=== PATIENT | female | born 1960 | race Caucasian/White ===

== ENCOUNTER → 2020-02-28 09:08 | Outpatient (BNVA) | payer OTHER, SELFPAY | PROVIDERS: Visit Provider Dietitian, Registered | DX: Z76.89 Persons encountering health services in other specified circumstances (principal) ==

== ENCOUNTER → 2020-03-27 08:06 | Outpatient (BNVA) | payer OTHER, SELFPAY | PROVIDERS: PCP Internal Medicine; Visit Provider Physician Assistant | DX: Z76.89 Persons encountering health services in other specified circumstances (principal) ==

== ENCOUNTER 2021-03-23 07:06 | Outpatient (REF) | payer OTHER, SELFPAY | END 2021-03-23 07:07 | disposition home or self-care (01) | LOC: HO.HOSX 07:06 | PROVIDERS: Visit Provider Physician Assistant | DX: Z13.89 Encounter for screening for other disorder (principal) ==

== ENCOUNTER 2021-06-09 09:08 | Outpatient (REF) | payer OTHER, SELFPAY ==
[2021-06-09 11:34] LABS: Appearance Urine CLEAR; Color Urine YELLOW; Glucose Urine UA NEG (NEG); Leukocyte Esterase Urine 1+ (NEG); Nitrite Urine NEG (NEG); PH 7.5 (5.0-8.0); Specific Gravity - Urine 1.015 (1.005-1.025); UACC Culture Trigger YES; Urine Blood NEG (NEG); Urine Ketones NEG (NEG); Urine Protein NEG (NEG-TRACE)
[2021-06-09 11:35] LABS: MANUAL DIFF FLAG NO
[2021-06-09 11:47] LABS: Basophils Percent Auto 0.4 % (0-2); Eosinophils Absolute Auto 0.3 X10*3/uL (0.0-0.4); Eosinophils Percent Auto 5.2 % (0-4); Hematocrit 41.9 % (37.0-47.0); Hemoglobin 13.4 g/dl (12.0-16.0); Imm Gran Abs Auto 0.01 X10*3/uL (0.00-0.03); Imm Gran Pct Auto 0.2 % (0.0-0.4); Lymphocytes Absolute Auto 1.8 X10*3/uL (1.2-4.9); Lymphocytes Percent Auto 35.5 % (20-40); Mean Corpuscular Hemoglobin 27.1 pg (27.0-33.0); Mean Corpuscular Volume 84.8 fL (80.0-98.0); Mean Platelet Volume 10.9 fL (9.4-12.3); Monocytes Absolute Auto 0.4 X10*3/uL (0.1-1.2); Monocytes Percent Auto 8.2 % (2-11); Neutrophils Absolute Auto 2.5 x10*3/uL (2.0-8.3); Neutrophils Percent Auto 50.5 % (45-73); Platelet Count 182 X10*3/uL (160-400); Red Blood Count 4.94 X10*6/uL (4.20-5.50); Red Cell Distribution Width 12.9 % (11.0-16.0)
[2021-06-09 11:48] LABS: UACC CULT YES
[2021-06-09 11:49] LABS: Bacteria Urine 4+ /LPF; RBC Urine 0 /HPF (0); Squamous Epithelial Cell Urine TRACE /LPF
[2021-06-09 12:09] LABS: Alanine Aminotransferase 26 U/L (0-31); Albumin Level 4.4 g/dL (3.5-5.0); Alkaline Phosphatase 45 U/L (39-117); Anion Gap 10 (12-20); Aspartate Amino Transferase 24 U/L (5-31); Bilirubin Total 0.7 mg/dL (0.0-1.0); Blood Urea Nitrogen 10 mg/dL (9-16); Calcium 9.4 mg/dL (8.4-10.2); Carbon Dioxide 29 mmol/L (22-29); Chloride 104 mmol/L (96-108); Cholesterol 225 mg/dL; Estimated Glomerular Filt Rate > 60; Glucose Fasting 93 mg/dL (60-99); HDL Cholesterol 60 mg/dL; LDL Cholesterol Calculated 149 mg/dl; Potassium 4.4 mmol/L (3.3-5.1); Sodium 139 mmol/L (135-145); Triglycerides 82 mg/dL
[2021-06-09 12:13] LABS: Thyroid Stimulating Hormone 2.12 uIU/mL (0.32-4.0); Vitamin D 25-OH Total 23.3 ng/mL (>30)
== END 2021-06-09 09:09 | disposition home or self-care (01) ==
LOC: HO.HMGCLDS 09:08
PROVIDERS: PCP Internal Medicine; Visit Provider Internal Medicine
DX: R10.13 Epigastric pain (principal); R07.9 Chest pain, unspecified; R82.90 Unspecified abnormal findings in urine; F41.9 Anxiety disorder, unspecified; E78.00 Pure hypercholesterolemia, unspecified
CPT/HCPCS: 36415; 80053; 80061; 81001; 82306; 84443; 85025; 87086; 87088; 87186

== ENCOUNTER → 2021-08-03 09:26 | Outpatient (BNVA) | payer OTHER, SELFPAY | PROVIDERS: PCP Internal Medicine; Referring Provider Internal Medicine; Visit Provider Internal Medicine Cardiovascular Disease | DX: R07.89 Other chest pain (principal); I49.3 Ventricular premature depolarization | CPT/HCPCS: 93005 ==

== ENCOUNTER → 2021-09-30 08:29 | Outpatient (REF) | payer OTHER, SELFPAY ==
--- NOTE | 2021-09-30 08:39 | CA_ITS ---
Transthoracic Echocardiogram Patient (Last, First, Middle): Karen An M Gender: Female Date of : 1960 Age: 60 Procedure Date: 09/30/2021 Procedure Type: Transthoracic Echocardiogram Location: OP Height: 167.64 cm Weight: 87.54 kg BSA: 1.97 m2 Heart Rate: bpm BP: 125 / 60 mmHg Processing Technician: Referring MD: Genaro Linn MD Cooperative Education Director: Genaro Linn MD Symptoms: I49.3 - Ventricular premature depolarization Study Quality: Fair ECG Rhythm: Sinus Conclusions: - 1. Normal LV systolic function with mild LVH 2. Normal cardiac valvular Doppler 3. Normal RV systolic pressure 4. No pericardial effusion Findings Left Ventricle Normal left ventricular size and systolic function. There is mildly increased left ventricular wall thickness. The visually estimated ejection fraction is between 55-60%. Spectral Doppler is indicative of a normal filling pattern. Right Ventricle Normal right ventricular cavity size and systolic function. Atria Both atria are normal in size. There is no evidence of interatrial shunt. Aortic Valve Normal aortic valve structure and function. There is no aortic valve stenosis. There is no aortic valve regurgitation. Mitral Valve Normal mitral valve structure and function. There is trace mitral valve regurgitation. There is no mitral valve stenosis. Pulmonic Valve The pulmonic valve was not well visualized. Tricuspid Valve Normal tricuspid valve structure. There is trace tricuspid valve regurgitation. The right ventricular systolic pressure is normal. The right ventricular systolic pressure is 13 mmHg. Normal right atrial pressure. There is no evidence of pulmonary hypertension. Great Vessels All visible segments of the aorta are normal in size. The pulmonary artery was not well visualized. Venous The inferior vena cava is normal in size and collapses greater than 50% with inspiration. Pericardium/Pleural There is no evidence of pericardial effusion. Prior Study Comparison No prior study available for comparison. Measurements 2D Linear Measurements IVSd: 1.21 0.6-0.9/0.6-1.0 cm LVIDd: 3.33 3.9-5.3/4.2-5.9 cm LVIDd Index: 1.69 2.4-3.2/2.2-3.1 cm/m2 LVIDs: 2.18 2.0-3.6 cm LVPWd: 1.21 0.7-1.1 cm Ao Root: 3.10 2.1-3.5 cm LA Diam: 3.20 2.7-3.8/3.0-4.0 cm LAIDs Index: 1.62 1.5-2.3 cm/m2 LV Mass: 159.31 67-162/88-224 g LV Mass Index: 80.87 43-95/49-115 g/m2 LVOT Diam: 2.10 3.0+(-)1.3 cm 2D Systolic Function EF 4C: 58.50 >55% EF 2C: 56.50 >55% EF BiP: 58.30 >55% Mitral Valve MV Pk E: 0.70 MV PK A: 0.58 MV Decel Time: 201.00 E/A: 1.20 E'Lateral: 9.79 E'Medial: 7.94 E/E' Med: 8.90 E/E' Lat: 7.20 PHT: 59.00 MVA PHT: 3.73 Decel [place]: 3.50 Aortic Valve AoV Pk Alexis: 1.32 AoV Mn Alexis: 0.89 AoV VTI: 0.29 AoV Pk Grad: 7.00 Aov Mn Grad: 4.00 RAFI Cont.VTI: 1.94 LVOT LVOT Pk Alexis: 0.78 LVOT Mn Alexis: 0.51 LVOT VTI: 0.16 LVOT Pk Grad: 2.00 LVOT Mn Grad: 1.00 LVOT Diam: 2.10 LVOT Area: 3.46 Diastolic Function MV Pk E: 0.70 MV Pk A: 0.58 E/A: 1.20 E'Medial: 7.94 E/E' Med: 8.90 E' Laterial: 9.79 E/E' Lat: 7.20 Tricuspid Valve TR Pk Alexis: 1.60 TR Pk Grad: 10.00 RA Press: 3.00 RVSP: 13.00 Great Vessels Aorta Ao Root-2D: 3.10 2.0-3.7 cm Ao Asc: 3.60 2.1-3.4 cm Pulmonary Valve PV Pk Alexis: 0.87 Peak PV Grad: 3.00 Updated in Other Vendor System with Status of Final Genaro Linn MD electronically signed on 09/30/2021 9:45:56 AM with status of Final
--- NOTE | 2021-09-30 08:39 | HM_ITS ---
* Total monitoring time 2 days and 21 hours. * Underlying rhythm is sinus. Average rate 74/Min. Range 48 to 130/Min. * No atrial fibrillation or flutter or AV blocks or pauses. * Rare supraventricular ectopy with minimal burden. * Rare ventricular ectopy with minimal burden. One episode of 3 beats. * No clear patient symptoms documented. MTDD
== END ==
LOC: HO.CARD 08:29
PROVIDERS: Visit Provider Internal Medicine Cardiovascular Disease
DX: I49.3 Ventricular premature depolarization (principal)
CPT/HCPCS: 93242; 93306

== ENCOUNTER → 2021-10-08 10:36 | Outpatient (REF) | payer OTHER, SELFPAY ==
--- NOTE | 2021-10-08 10:41 | CA_ITS ---
Acquisition Time: 2021-10-08 10:45:25 Total Exercise Time: 00:08:00 Test Indications: CP Medications: SEE CHART Protocol: ARNAUD Max HR: 150 BPM 93% of Pred: 161 BPM Max BP: 194/060 mmHG Max Work Load: 10.1 METS Exercise stress test with exercise 8 min of Arnaud protocol, achieving 93% MPHR 10.1 METs, without anginal symptoms, without arrythmia during exercise, with i solated PVC in recovery, with baseline BP 142/88 which odin to 194/60, without EKG changes meeting criteira for ischemia. In recovery BP returned to near baseline. Test reviewed with Dr Toledo Referred By: Genaro Linn Overread By: JAN GREEN
== END ==
LOC: HO.CARD 10:36
PROVIDERS: Visit Provider Internal Medicine Cardiovascular Disease
DX: I49.3 Ventricular premature depolarization (principal); R07.89 Other chest pain
CPT/HCPCS: 93017

== ENCOUNTER 2023-07-28 09:33 | Outpatient (REF) | payer OTHER, SELFPAY ==
[2023-07-28 13:05] LABS: MANUAL DIFF FLAG NO
[2023-07-28 13:11] LABS: Basophils Percent Auto 0.4 % (0-2); Eosinophils Absolute Auto 0.3 X10*3/uL (0.0-0.4); Eosinophils Percent Auto 5.4 % (0-4); Hematocrit 38.9 % (37.0-47.0); Hemoglobin 12.5 g/dl (12.0-16.0); Imm Gran Abs Auto 0.01 X10*3/uL (0.00-0.03); Imm Gran Pct Auto 0.2 % (0.0-0.4); Lymphocytes Absolute Auto 1.9 X10*3/uL (1.2-4.9); Lymphocytes Percent Auto 35.3 % (20-40); Mean Corpuscular HGB Conc 32.1 g/dl (31.0-35.0); Mean Corpuscular Hemoglobin 27.4 pg (27.0-33.0); Mean Corpuscular Volume 85.3 fL (80.0-98.0); Mean Platelet Volume 10.9 fL (9.4-12.3); Monocytes Absolute Auto 0.4 X10*3/uL (0.1-1.2); Monocytes Percent Auto 7.8 % (2-11); Neutrophils Absolute Auto 2.8 x10*3/uL (2.0-8.3); Neutrophils Percent Auto 50.9 % (45-73); Platelet Count 201 X10*3/uL (160-400); Red Blood Count 4.56 X10*6/uL (4.20-5.50); Red Cell Distribution Width 13.2 % (11.0-16.0); White Blood Count 5.4 X10*3/uL (4.8-10.8)
[2023-07-28 14:01] LABS: Alanine Aminotransferase 13 U/L (0-31); Albumin Level 4.2 g/dL (3.5-5.0); Alkaline Phosphatase 45 U/L (39-117); Anion Gap 11 (12-20); Aspartate Amino Transferase 18 U/L (5-31); Bilirubin Total 0.6 mg/dL (0.0-1.0); Blood Urea Nitrogen 13 mg/dL (9-16); Calcium 9.2 mg/dL (8.4-10.2); Carbon Dioxide 28 mmol/L (22-29); Chloride 105 mmol/L (96-108); Cholesterol 220 mg/dL (<200); Estimated Glomerular Filt Rate > 60; Glucose Fasting 86 mg/dL (60-99); HDL Cholesterol 71 mg/dL (>40); LDL Cholesterol Calculated 139 mg/dL (<100); Potassium 4.3 mmol/L (3.3-5.1); Sodium 140 mmol/L (135-145); Total Protein 6.8 g/dL (6.5-8.0); Triglycerides 51 mg/dL (<150); Vitamin D 25-OH Total 47.9 ng/mL (>30)
== END 2023-07-28 09:34 | disposition home or self-care (01) ==
LOC: HO.HMGCLDS 09:33
PROVIDERS: PCP Internal Medicine; Visit Provider Internal Medicine
DX: Z00.00 Encounter for general adult medical examination without abnormal findings (principal); F41.9 Anxiety disorder, unspecified; E78.00 Pure hypercholesterolemia, unspecified; R10.13 Epigastric pain; E55.9 Vitamin D deficiency, unspecified
CPT/HCPCS: 36415; 80053; 80061; 82306; 85025

== ENCOUNTER 2023-12-14 23:45 | Emergency (ER) | payer OTHER, SELFPAY ==
[2023-12-15 00:12] VITALS: BP 164/89; PULSE 79; RESP 18; TEMP 37.1; O2SAT 100; BMI 25.2
[2023-12-15 00:28] LABS: MANUAL DIFF FLAG NO
[2023-12-15 00:34] LABS: Basophils Percent Auto 0.2 % (0-2); Eosinophils Percent Auto 0.2 % (0-4); Hemoglobin 12.4 g/dl (12.0-16.0); Imm Gran Abs Auto 0.04 X10*3/uL (0.00-0.03); Imm Gran Pct Auto 0.4 % (0.0-0.4); Lymphocytes Percent Auto 18.7 % (20-40); Mean Corpuscular HGB Conc 33.5 g/dl (31.0-35.0); Mean Corpuscular Hemoglobin 27.9 pg (27.0-33.0); Mean Corpuscular Volume 83.3 fL (80.0-98.0); Mean Platelet Volume 9.5 fL (9.4-12.3); Monocytes Absolute Auto 0.7 X10*3/uL (0.1-1.2); Monocytes Percent Auto 6.4 % (2-11); Neutrophils Absolute Auto 8.1 x10*3/uL (2.0-8.3); Neutrophils Percent Auto 74.1 % (45-73); Platelet Count 225 X10*3/uL (160-400); Red Blood Count 4.44 X10*6/uL (4.20-5.50); Red Cell Distribution Width 12.4 % (11.0-16.0); White Blood Count 10.9 X10*3/uL (4.8-10.8)
--- NOTE | 2023-12-15 00:39 | ED_ITS ---
HPI - Back Pain/Injury General Chief Complaint: Back Pain/Injury Stated Complaint: Severe lower back and hip pain Time Seen by Provider: 12/15/23 00:37 Source: patient Mode of arrival: ambulatory Limitations: no limitations History of Present Illness HPI Narrative: Patient is a 62-year-old female who presents emergency department for evaluation of atraumatic back pain diffusely across the lower back and radiates anteriorly to the hips and anterior thighs proximally. She reports onset of symptoms 3 weeks ago that has progressively worsened. She states that she 1st spoke with her primary care doctor and received a prescription for ibuprofen without much relief, this was followed by a prescription for cyclobenzaprine and another prescription for ibuprofen, ultimately not really relieving her pain. She was given a referral for physical therapy. Yesterday morning she attempted to do a telehealth physical therapy appointment, and states that once attempting to lie on the floor she was unable to participate any further and was advised to seek evaluation in the emergency department. 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 Denies any history of similar back pain prior to the past 3 weeks. She does report a few days ago that she noted a very small amount of blood in her urine on a single occasion without further issues. Denies recent precipitating injury, fevers, chills, burning with micturition, urinary frequency/urgency/hesitancy, bladder or bowel dysfunction, numbness or tingling of the perineum or bilateral legs. Denies any recent surgical procedures, any known immune compromising conditions, personal history of cancer, or IV drug usage. elicited complaint: back pain Related Data Home Medications ?Medication ?Instructions ?Recorded ?Confirmed clonazepam 0.5 mg tablet 0.5 mg PO DAILY PRN 08/03/21 08/03/21 omeprazole 20 mg capsule,delayed 20 mg PO QAM 08/03/21 08/03/21 release Previous Rx's ?Medication ?Instructions ?Recorded sulfamethoxazole 800 1 tab PO Q12H 5 days #10 tabs 08/07/22 mg-trimethoprim 160 mg tablet (Bactrim DS) cephalexin 500 mg capsule 500 mg PO BID #27 caps 12/15/23 Allergies Allergy/AdvReac Type Severity Reaction Status Date / Time Sulfa (Sulfonamide Allergy Rash Verified 12/15/23 00:12 Antibiotics) Review of Systems 2 Review of Systems: Yes all other systems are reviewed and are negative [facility] Past Medical History Attestation statement: The following information was validated with the patient. Source: old records reviewed Medical History Overweight (BMI 25.0-29.9) History of deviated nasal septum History of uterine fibroid Surgical History History of root canal procedure Hx of section History of partial hysterectomy Hx of rotator cuff surgery Family History Family History Father Diverticula of colon Mother Glaucoma Obesity Brother No problems noted. Brother No problems noted. Brother No problems noted. Sister No problems noted. Son No problems noted. Social History Social History Alcohol intake: never Smoked in Last 30 Days: No Use of substances other than those prescribed or required for medical reasons: Yes Substance Use Type: Marijuana Advance Directives: No Advance Directives Information Provided: Yes Physical Exam 2 Vital Signs: Vital Signs: Last Vital Signs Temp 98.4 F 12/15/23 01:12 Pulse 61 12/15/23 01:12 Resp 17 12/15/23 01:12 BP 152/70 H 12/15/23 01:12 Pulse Ox 98 12/15/23 01:12 O2 Del Method Room Air 12/15/23 01:12 BMI result Body Mass Index 25.2 Appearance: Alert.?Oriented to person, place and time. No acute distress.?Normal affect. Eyes: Pupils equal, round and reactive to light.? ENT: Pharynx normal.?? Neck: Normal inspection.? Neck supple.?? CVS: Heart sounds normal. Normal heart rate and rhythm.? Pulses normal; bilateral radial pulses 2+, bilateral posterior tibial/dorsalis pedis pulses 2+.? Respiratory: No respiratory distress.? Lung sounds clear to auscultation bilaterally?? Abdomen: Soft and non-tender. Normoactive bowel sounds. No pulsatile mass.?? Skin: Skin warm and dry.? Normal skin color.? Normal skin turgor.?? Extremities: No lower extremity edema.? No calf ttp? Back: + moderate paraspinal muscular tenderness from lumbar region to coccyx. Bilateral CVA tenderness. No midline spinal tenderness, step-off's, or deformity. Full ROM intact in bilateral lower extremities. Straight leg test positive on right; Straight leg test positive on left. No rashes, lesions, areas of induration or fluctuance, or signs of infection noted., Neuro: Moves all extremities spontaneously. 5/5 strength in hip extension/flexion, abduction, adduction. Sensation to light touch intact bilaterally. Patellar and Achilles reflex 2+ bilaterally. No ataxia, gait normal and steady.. No focal neuro deficits. Course Reevaluation(s) Reevaluation #1: Suspect the pain may be multifactorial, concern for possible muscular skeletal etiology, in addition to renal colic in the setting of pyelonephritis no evidence of JOSE she is tolerating oral intake, not consistent or inpatient level of care or IV antibiotics. Will discharge her home with a prescription for cephalexin 500 mg twice daily for 14 days. Recommend outpatient follow-up with the primary care doctor Time: 01:28 Medications Administered Discontinued Medications Generic Name Dose Route Start Last Admin Trade Name Freq PRN Reason Stop Dose Admin Ketorolac Tromethamine 15 mg 12/15/23 01:13 12/15/23 01:18 Ketorolac Tromethamine 15 Mg/Ml Vial IM 12/15/23 01:14 15 mg ONCE ONE Administration Medical Decision Making Medical Decision Making MDM Narrative: Patient is a 62-year-old female who presents emergency department for evaluation of atraumatic back pain as per HPI. On evaluation not have any midline lumbar spine tenderness, step-offs, deformity, has notable paraspinal muscle tenderness bilaterally, appears most consistent with musculoskeletal etiology, although cannot completely exclude herniated disc. To ambulate with a steady gait, she was able to get from a supine position on the stretcher to a seated and standing position without difficulty or any assistance. On neurological exam there are no deficits. Not consistent with spinal infection, epidural abscess, AAA, epidural abscess, or dissection. No high risk past medical history including incontinence, fever, immunosuppression, recent surgery or lumbar puncture, coagulopathy, significant trauma, recent unintentional weight loss, pulsatile mass, history of cancer, history of TB, history of IV drug use that would warrant MRI. Not consistent with pyelonephritis, urinary tract infection, renal calculi, pelvic infection, appendicitis, diverticulitis. On exam no concern for cauda equina syndrome. Differential Diagnosis Differential Diagnoses: The differential diagnosis associated with the presentation includes ( see narrative above) Admission/Observation Consideration of admission/observation: Escalation of care including admission/observation considered ( see narrative above) Lab Data MDM Lab Attestation statement: I reviewed the patient's lab results. CBC with a minimally elevated CBC 10.9, no anemia, no thrombocytopenia. No electrolyte derangement. No JOSE. LFTs within normal range. Urinalysis with compelling evidence of urinary tract infection, no microscopic hematuria 12/15/23 00:24 12/15/23 00:24 Labs: Lab Results 12/15/23 12/15/23 Range/Units 00:24 01:14 WBC 10.9 H (4.8-10.8) X10*3/uL RBC 4.44 (4.20-5.50) X10*6/uL Hgb 12.4 (12.0-16.0) g/dl Hct 37.0 (37.0-47.0) % MCV 83.3 (80.0-98.0) fL MCH 27.9 (27.0-33.0) pg MCHC 33.5 (31.0-35.0) g/dl RDW 12.4 (11.0-16.0) % Plt Count 225 (160-400) X10*3/uL MPV 9.5 (9.4-12.3) fL Immature Gran % (Auto) 0.4 (0.0-0.4) % Neut % (Auto) 74.1 H (45-73) % Lymph % (Auto) 18.7 L (20-40) % [place] % (Auto) 6.4 (2-11) % Eos % (Auto) 0.2 (0-4) % Baso % (Auto) 0.2 (0-2) % Lymph # (Auto) 2.0 (1.2-4.9) X10*3/uL [place] # (Auto) 0.7 (0.1-1.2) X10*3/uL Eos # (Auto) 0.0 (0.0-0.4) X10*3/uL Baso # (Auto) 0.0 (0.0-0.2) X10*3/uL Abs Immat Gran (auto) 0.04 H (0.00-0.03) X10*3/uL Absolute Neuts (auto) 8.1 (2.0-8.3) x10*3/uL Absolute Nucleated RBC 0.000 (0.0-0.012) X10*3/uL Nucleated RBC % (auto) 0.0 (0.0-0.2) /100WBC Sodium 141 (135-145) mmol/L Potassium 4.7 (3.3-5.1) mmol/L Chloride 106 (96-108) mmol/L Carbon Dioxide 27 (22-29) mmol/L Anion Gap 13 (12-20) BUN 24 H (9-16) mg/dL Creatinine 0.71 (0.5-1.4) mg/dL Estim Creat Clear Calc 80.8 Estimated GFR > 60 Random Glucose 102 (60-115) mg/dL Calcium 9.8 D (8.4-10.2) mg/dL Total Bilirubin 0.4 (0.0-1.0) mg/dL AST 16 (5-31) U/L ALT 14 (0-31) U/L Alkaline Phosphatase 46 (39-117) U/L Total Protein 7.4 (6.5-8.0) g/dL Albumin 4.5 (3.5-5.0) g/dL Urine Color Yellow Urine Appearance Clear Urine pH 5.5 (5.0-9.0) Ur Specific [place] >= 1.030 H (1.005-1.025) Urine Protein Trace (Neg-Trace) mg/dL Urine Glucose (UA) Negative (Negative) mg/dL Urine Ketones Negative (Negative) mg/dL Urine Blood Negative (Negative) Urine Nitrite Positive H (Negative) Ur Leukocyte Esterase Moderate (2+) H (Negative) Urine RBC 0-2 (0-2) /HPF Urine WBC >50 H (0-5) /HPF Ur Squamous Epith Cells 0-2 (0-2) /HPF Urine Bacteria 4+ (None Seen) Hyaline Casts 0-2 (0-2) /LPF Prescription Management I considered prescription management with: Pain Medication Discharge Plan Discharge Clinical Impression: Pyelonephritis, Strain of lumbar region Patient Disposition: Home, Self-Care Instructions: Kidney Infection (ED), Acute Low Back Pain (ED) Additional Instructions: Testing today indicates that you have a urinary tract infection, given the area of your pain in your back it is concerning that infection may have traveled up to your kidneys. Your kidney blood work not show evidence of complication. Your are dehydrated, it is important that you make sure that you are drinking plenty of fluids. A prescription for antibiotics has been sent to your pharmacy, his complete the entire course do not stop taking it early even if you begin to feel better, do not skip any doses. Follow-up with your primary care provider. If you continue to have this pain after treatment for the infection, they may consider additional refer for radiographic imaging of back and/or district attorney and treatment modality Prescriptions: New cephalexin 500 mg capsule 500 mg PO BID Qty: 27 0RF No Action sulfamethoxazole-trimethoprim [Bactrim DS] 800-160 mg tablet 1 tab PO Q12H 5 Days Qty: 10 0RF omeprazole 20 mg capsule,delayed release(DR/EC) 20 mg PO QAM clonazepam 0.5 mg tablet 0.5 mg PO DAILY PRN Referrals: Abdon Heath DO [Primary Care Provider] - Print Language: Guinean
--- NOTE | 2023-12-15 00:40 | PC.NURSE ---
Pt a&ox4, no signs distress Pt reports 8/10 lower back pain that radiates to her hips Plan of care ongoing.
[2023-12-15 00:43] LABS: Alanine Aminotransferase 14 U/L (0-31); Albumin Level 4.5 g/dL (3.5-5.0); Alkaline Phosphatase 46 U/L (39-117); Anion Gap 13 (12-20); Aspartate Amino Transferase 16 U/L (5-31); Bilirubin Total 0.4 mg/dL (0.0-1.0); Blood Urea Nitrogen 24 mg/dL (9-16); Calcium 9.8 mg/dL (8.4-10.2); Carbon Dioxide 27 mmol/L (22-29); Chloride 106 mmol/L (96-108); Creatinine Clr Calc Pharmacy 80.8; Estimated Glomerular Filt Rate > 60; Glucose Random 102 mg/dL (60-115); Potassium 4.7 mmol/L (3.3-5.1); Sodium 141 mmol/L (135-145); Total Protein 7.4 g/dL (6.5-8.0)
[2023-12-15 01:12] VITALS: BP 152/70; PULSE 61; RESP 17; TEMP 36.9; O2SAT 98
[2023-12-15] MEDS: Ketorolac Tromethamine 15 MG/ML VIAL IM (01:18)
[2023-12-15 01:21] LABS: Appearance Urine Clear; Color Urine Yellow; Glucose Urine UA Negative (Negative); Leukocyte Esterase Urine Moderate (2+) (Negative); Nitrite Urine Positive (Negative); PH 5.5 (5.0-9.0); Specific Gravity - Urine >= 1.030 (1.005-1.025); UMIC TRIGGER UACC YES; Urine Blood Negative (Negative); Urine Ketones Negative (Negative); Urine Protein Trace mg/dL (Neg-Trace)
--- NOTE | 2023-12-15 01:22 | PC.NURSE ---
Pt medicated per mar Tolerated well Plan of care ongoing.
[2023-12-15 01:23] LABS: Bacteria Urine 4+ (None Seen); Hyaline Casts Urine 0-2 /LPF (0-2); RBC Urine 0-2 /HPF (0-2); Squamous Epithelial Cell Urine 0-2 /HPF (0-2); UACC Culture Trigger YES; WBC Urine >50 /HPF (0-5)
[2023-12-15] MEDS: cephALEXin 500 MG CAPSULE PO (01:44)
[2023-12-15 01:47] VITALS: BP 152/70; PULSE 61; RESP 17; TEMP 36.9; O2SAT 98
== END 2023-12-15 01:53 | disposition home or self-care (01) ==
PROVIDERS: Emergency Provider Emergency Medicine; PCP Internal Medicine
DX: S39.012A Strain of muscle, fascia and tendon of lower back, initial encounter (principal); N12 Tubulo-interstitial nephritis, not specified as acute or chronic; X58.XXXA Exposure to other specified factors, initial encounter; Y93.9 Activity, unspecified; Y92.89 Other specified places as the place of occurrence of the external cause; Y99.8 Other external cause status; Z79.899 Other long term (current) drug therapy
CPT/HCPCS: 36415; 80053; 81001; 85025; 87086; 87088; 87186; 96372; 99284; J1885

== ENCOUNTER 2023-12-16 10:24 | Outpatient (REF) | payer OTHER, SELFPAY ==
--- NOTE | ~2023-12-16 | US_ITS ---
EXAMINATION: US ABDOMEN COMPLETE CLINICAL INFORMATION: Upper abdominal pain. Renal colic.. COMPARISON: None available. TECHNIQUE: Real-time imaging of the abdominal viscera. FINDINGS: PANCREAS: Head and body appear unremarkable. Tail not visualized ABDOMINAL AORTA: Mildly atherosclerotic. The proximal, mid, and distal segments appear normal in caliber. INFERIOR VENA CAVA: Visualized portions are normal. LIVER: 2.3 x 2.3 x 2.3 cm, solid-appearing, heterogeneous left hepatic mass, not further characterized. 8.7 x 6.2 x 4.4 cm benign left hepatic cyst containing a thin (1 mm) internal septation. Liver otherwise appears unremarkable in size and contour. Question mild fatty infiltration of the liver. No intrahepatic biliary duct dilatation is seen. GALLBLADDER: The gallbladder is physiologically distended without evidence of stones, sludge, polyps, wall thickening or pericholecystic fluid. COMMON BILE DUCT: Normal in caliber measuring 0.57 cm in diameter. RIGHT KIDNEY: No hydronephrosis. No renal calculi or focal parenchymal lesion identified. The kidney measures 12.9 cm in maximum dimension. LEFT KIDNEY: The technologist hernandez an approximately 2.5 cm isoechoic structure protruding into the left renal hilum, likely representing a prominent column of Osvaldo. No hydronephrosis. No renal calculi or suspicious focal parenchymal lesion identified. The kidney measures 11.6 cm in maximum dimension. SPLEEN: The spleen measures 10.4 cm in maximum dimension. FREE FLUID: None. US/US abdomen complete IMPRESSION: 2.3 x 2.3 x 2.3 cm, solid-appearing, heterogeneous left hepatic mass, not further characterized. Recommend MRI for further evaluation. No acute finding. Electronically signed by: Justin Palma MD 12/16/2023 12:04 PM EDT
== END 2023-12-16 10:25 | disposition home or self-care (01) ==
LOC: HO.HMGCX 10:24
PROVIDERS: PCP Internal Medicine; Visit Provider Internal Medicine
DX: N23 Unspecified renal colic (principal)
CPT/HCPCS: 76700

== ENCOUNTER 2023-12-17 04:35 | Emergency (ER) | payer OTHER, SELFPAY ==
[2023-12-17] VITALS (8 sets, daily range): BP systolic 118–154; BP diastolic 64–101; PULSE 58–85; RESP 14–22; TEMP 36.2–36.9; O2SAT 94–100; BMI 25.1
--- NOTE | ~2023-12-17 | CT_ITS ---
EXAMINATION: CT ABDOMEN AND PELVIS WITH CONTRAST CLINICAL INFORMATION: Left-sided back pain COMPARISON: Abdominal ultrasound December 16, 2023 TECHNIQUE: Multidetector volumetric images were obtained from the superior aspect of the liver through the pubic symphysis following administration 85 mL of Omnipaque 350 intravenous contrast. Sagittal and coronal reformatted images were obtained on the technologist's workstation. Oral contrast: No This CT examination was performed using dose optimization techniques as appropriate, variously including the following: *Automated exposure control *Adjustment of mA and/or kV according to patient size (this includes techniques or standardized protocols for targeted exams where dose is matched to indication/reason for exam; i.e. extremities or head) *Use of iterative reconstruction technique DLP: 485 mGy-cm FINDINGS: Visualized lung bases demonstrate mild dependent atelectasis. Bilateral breast implants are partially visualized. The liver is mildly enlarged. Numerous cysts are present throughout the liver, some of which contain septations. Largest hepatic cyst measures approximately 6 cm. There is a nonspecific 3.2 cm lesion within the left hepatic lobe which is nonspecific but demonstrates imaging characteristics which may represent a hemangioma. Several smaller liver lesions are too small to accurately characterize. The gallbladder is unremarkable. The pancreas, spleen and adrenal glands are unremarkable. Symmetrically enhancing kidneys. No hydronephrosis of either kidney. A few sub-5 mm hepatic hypodensities bilaterally are too small to accurately characterize but statistically cysts. The stomach is decompressed. Normal caliber loops of small and large bowel. There is a mild stool burden throughout the majority of the colon. Mild to moderate colonic diverticulosis without CT evidence to suggest active diverticulitis. Normal caliber abdominal aorta demonstrating mild to moderate atherosclerotic disease. No retroperitoneal lymphadenopathy. The bladder is normal in appearance. The uterus is surgically absent. No gross free pelvic fluid. No inguinal lymphadenopathy. No acute osseous abnormality. CT/CT abdomen pelvis w IV con IMPRESSION: 1. Mild to moderate colonic diverticulosis without CT evidence to suggest active diverticulitis. 2. Numerous hepatic cysts. There is a nonspecific 3.2 cm lesion within the left hepatic lobe which is nonspecific but demonstrates imaging characteristics which may represent a hemangioma. Several smaller liver lesions are too small to accurately characterize. Fleischner guidelines were followed. Electronically signed by: Dandre Greenwood MD 12/17/2023 12:00 PM EDT
--- NOTE | 2023-12-17 07:36 | ED_ITS ---
HPI - General Adult General Chief complaint: Back Pain/Injury Stated complaint: left pain/burning from of stomach Time Seen by Provider: 12/17/23 07:24 Source: patient Mode of arrival: ambulatory Limitations: no limitations History of Present Illness ED Provider: Dion NEAL HPI narrative: This is a 62 year old female presenting w/ L sided back pain X 3 weeks. Pain radiates down to her left hip and left lower extremity. Pain is worse w/ leaning forward and better at rest. No a/c trauma. Reports pain is debilitating and interfeering w/ ADL. Denies numbness, tingling, changes in urine/bowel habits, cp, sob, fevers, chills, nausea, vomting, abd pain, saddle anesthesias. No hx of IVDA. Related Data Home Medications ?Medication ?Instructions ?Recorded ?Confirmed clonazepam 0.5 mg tablet 0.5 mg PO DAILY PRN 08/03/21 08/03/21 omeprazole 20 mg capsule,delayed 20 mg PO QAM 08/03/21 08/03/21 release Previous Rx's ?Medication ?Instructions ?Recorded sulfamethoxazole 800 1 tab PO Q12H 5 days #10 tabs 08/07/22 mg-trimethoprim 160 mg tablet (Bactrim DS) cephalexin 500 mg capsule 500 mg PO BID #27 caps 12/15/23 cyclobenzaprine 10 mg tablet 10 mg PO BEDTIME PRN muscle spasm 12/17/23 #7 tabs ketorolac 10 mg tablet 10 mg PO TID PRN pain 5 days #15 12/17/23 tabs lidocaine 5 % topical patch 1 patch topical DAILY PRN pain #15 12/17/23 ea prednisone 20 mg tablet 20 mg PO DAILY 5 days #5 tabs 12/17/23 Allergies Allergy/AdvReac Type Severity Reaction Status Date / Time Sulfa (Sulfonamide Allergy Rash Verified 12/17/23 04:41 Antibiotics) Review of Systems 2 Review of Systems: Yes all other systems are reviewed and are negative PMFSH Past Medical History Attestation statement: The following information was validated with the patient. Source: old records reviewed and nursing notes reviewed Medical History Overweight (BMI 25.0-29.9) History of deviated nasal septum History of uterine fibroid Surgical History History of root canal procedure Hx of section History of partial hysterectomy Hx of rotator cuff surgery Family History Family History Father Diverticula of colon Mother Glaucoma Obesity Brother No problems noted. Brother No problems noted. Brother No problems noted. Sister No problems noted. Son No problems noted. Social History Social History Alcohol intake: never Smoked in Last 30 Days: No Substance Use Type: Marijuana Advance Directives: No Advance Directives Information Provided: Yes Patient : No Physical Exam ED Vital Signs: Vital Signs - 24 hr 12/17/23 04:37 12/17/23 04:54 12/17/23 07:55 Temperature 97.7 F 98 F 97.2 F Pulse Rate 80 69 76 Respiratory Rate 22 H 20 14 Blood Pressure 154/85 H 138/64 144/76 H Pulse Oximetry 100 96 96 Oxygen Delivery Method Room Air Room Air Room Air 12/17/23 08:24 12/17/23 10:25 12/17/23 10:46 Temperature 98.4 F 97.5 F Pulse Rate 85 69 Respiratory Rate 16 14 20 Blood Pressure 118/101 H 147/70 H Pulse Oximetry 99 96 Oxygen Delivery Method Room Air Room Air 12/17/23 12:17 Temperature 98.2 F Pulse Rate 58 Respiratory Rate 14 Blood Pressure 148/73 H Pulse Oximetry 94 Oxygen Delivery Method Room Air BMI result Body Mass Index 25.1 vss Appearance: Alert.? Oriented X3.? No acute distress.? Head: Normocephalic, atraumatic, no step-offs or deformities Eyes: Pupils equal, round and reactive to light.? CVS: Normal heart rate and rhythm.? Pulses normal.? Respiratory: No respiratory distress.? Breath sounds normal.? Abdomen: Soft and nontender.? Skin: Skin warm and dry.? Normal skin color.? Normal skin turgor.? Extremities: No lower extremity edema.? No calf ttp. 5/5 strength to bilateral upper and lower extremities Back: No midline tenderness, no C-spine tenderness, full range of motion, no CVA tenderness bilaterally + mild L sided lumbar paraspinous muscle ttp no midline pain. Pain w/ rom of back. Neuro: Oriented X 3.? No motor deficit.? No sensory deficit. CN 2-12 intact . Ambulating with steady gait normal coordination. No saddle anesthesias Course Reevaluation(s) Reevaluation #1: CBC unremarkable. Chemistry with no acute findings eating intervention. Mild elevation in BUN however p.o. hydration will be encouraged. UA with no infection. CT abdomen and pelvis with [id number] colonic diverticulosis without CT evidence of acute diverticulitis numerous hepatic cysts nonspecific 3.2 lesion within the left hepatic lobe which is nonspecific but demonstrates imaging characteristics which could represent hemangioma several smaller liver lesions are too small to accurately characterize she had an ultrasound yesterday will give her GI follow-up. Patient feeling much better she is ambulating around the department states she feels significant improvement. Educated patient on diagnosis and treatment plan, answered all question, patient verbalizes understanding. At this time patient will be discharged home, advised to return with new or worsening symptoms. Educated on worrisome signs and symptoms and when to return. At this time I feel comfortable discharge home. Time: 14:21 Medications Administered Discontinued Medications Generic Name Dose Route Start Last Admin Trade Name Mario Albertoq PRN Reason Stop Dose Admin Diazepam 2 mg 12/17/23 13:05 12/17/23 13:22 Diazepam 2 Mg Tablet PO 12/17/23 13:06 2 mg ONCE ONE Administration Iohexol 100 ml 12/17/23 11:08 12/17/23 11:09 Iohexol 350 Mg/Ml 100 Ml Infus..Btl IV 12/17/23 11:09 85 ml ONCE ONE Administration Ketorolac Tromethamine 30 mg 12/17/23 10:18 12/17/23 10:44 Ketorolac Tromethamine 15 Mg/Ml Vial IVPUSH 12/17/23 10:19 30 mg ONCE ONE Administration Morphine Sulfate 4 mg 12/17/23 10:18 12/17/23 10:46 Morphine Sulfate 4 Mg/Ml Cartridge IVPUSH 12/17/23 10:19 4 mg ONCE ONE Administration Protocol Medical Decision Making Medical Decision Making [facility] Narrative: 1309 62 year old female presents w/ L sided back pain w/ radiation to LLE PE- + mild L sided lumbar paraspinous muscle ttp no midline pain. Pain w/ rom of back. hx and pe concerning for MSK pain / lumbar radiculopathy vs herniated disc vs kidney stone vs renal colic. Unlikely pylo, UTI, acute abdomen, cauda equina, cord compression. Plan- labs, urine, imaging Differential Diagnosis Differential Diagnoses: The differential diagnosis associated with the presentation includes (hx and pe concerning for MSK pian / lumbar radiculopathy vs herniated disc vs kidney stone vs renal colic. Unlikely pylo, UTI, acute abdomen, cauda equina, cord compression. ) Admission/Observation Consideration of admission/observation: Escalation of care including admission/observation considered Lab Data MDM Lab Attestation statement: I reviewed the patient's lab results. 12/17/23 10:28 12/17/23 10:28 Labs: Lab Results 12/17/23 12/17/23 Range/Units 10: 10:35 WBC 7.5 (4.8-10.8) X10*3/uL RBC 4.63 (4.20-5.50) X10*6/uL Hgb 12.8 (12.0-16.0) g/dl Hct 38.1 (37.0-47.0) % MCV 82.3 (80.0-98.0) fL MCH 27.6 (27.0-33.0) pg MCHC 33.6 (31.0-35.0) g/dl RDW 12.5 (11.0-16.0) % Plt Count 204 (160-400) X10*3/uL MPV 9.2 L (9.4-12.3) fL Immature Gran % (Auto) 0.7 H (0.0-0.4) % Neut % (Auto) 50.8 (45-73) % Lymph % (Auto) 38.6 (20-40) % [place] % (Auto) 7.2 (2-11) % Eos % (Auto) 2.4 (0-4) % Baso % (Auto) 0.3 (0-2) % Lymph # (Auto) 2.9 (1.2-4.9) X10*3/uL [place] # (Auto) 0.5 (0.1-1.2) X10*3/uL Eos # (Auto) 0.2 (0.0-0.4) X10*3/uL Baso # (Auto) 0.0 (0.0-0.2) X10*3/uL Abs Immat Gran (auto) 0.05 H (0.00-0.03) X10*3/uL Absolute Neuts (auto) 3.8 (2.0-8.3) x10*3/uL Absolute Nucleated RBC 0.000 (0.0-0.012) X10*3/uL Nucleated RBC % (auto) 0.0 (0.0-0.2) /100WBC Sodium 141 (135-145) mmol/L Potassium 4.0 (3.3-5.1) mmol/L Chloride 103 (96-108) mmol/L Carbon Dioxide 30 H (22-29) mmol/L Anion Gap 12 (12-20) BUN 17 H (9-16) mg/dL Creatinine 0.85 (0.5-1.4) mg/dL Estim Creat Clear Calc 67.6 Estimated GFR > 60 Random Glucose 92 (60-115) mg/dL Calcium 9.3 (8.4-10.2) mg/dL Total Bilirubin 0.6 (0.0-1.0) mg/dL AST 17 (5-31) U/L ALT 12 (0-31) U/L Alkaline Phosphatase 39 (39-117) U/L Total Protein 6.8 (6.5-8.0) g/dL Albumin 4.2 (3.5-5.0) g/dL Urine Color Yellow Urine Appearance Clear Urine pH 7.5 (5.0-9.0) Ur Specific [place] 1.015 (1.005-1.025) Urine Protein Negative (Neg-Trace) mg/dL Urine Glucose (UA) Negative (Negative) mg/dL Urine Ketones Negative (Negative) mg/dL Urine Blood Negative (Negative) Urine Nitrite Negative (Negative) Ur Leukocyte Esterase Negative (Negative) Independent Interpretation I performed an independent interpretation of an: CT Scan (CT/CT abdomen pelvis w IV con IMPRESSION: 1. Mild to moderate colonic diverticulosis without CT evidence to suggest active diverticulitis. 2. Numerous hepatic cysts. There is a nonspecific 3.2 cm lesion within the left hepatic lobe which is nonspecific but demonstrates imaging characteristics w) External Record Review External record reviewed: Office record, Outpatient record and Prior outpatient labs Prescription Management I considered prescription management with: Other (see dispo ) Chronic Conditions Patient?s care impacted by: Other Discharge Plan Discharge Clinical Impression: Lumbar radiculopathy, Liver cyst Patient Disposition: Home, Self-Care Instructions: Acute Low Back Pain (ED), Lumbar Radiculopathy (ED), Lower Back Exercises (ED) Additional Instructions: Take your medications as prescribed. If you were prescribed antibiotics today, it is important that you take your medication to their entirety, do not skip any doses, do not finish them early. Follow-up with your primary care provider this week. Return to the emergency department with new or worsening symptoms. Such as fevers, chills, chest pain, shortness of breath, nausea, vomiting, dizziness, headache, vision changes, lethargy In case of emergency call 911 Follow-up with spine and sport, your PCP and GI. CT/CT abdomen pelvis w IV con IMPRESSION: 1. Mild to moderate colonic diverticulosis without CT evidence to suggest active diverticulitis. 2. Numerous hepatic cysts. There is a nonspecific 3.2 cm lesion within the left hepatic lobe which is nonspecific but demonstrates imaging characteristics which may represent a hemangioma. Several smaller liver lesions are too small to accurately characterize. Prescriptions: New cyclobenzaprine 10 mg tablet 10 mg PO BEDTIME PRN (Reason: muscle spasm) Qty: 7 0RF prednisone 20 mg tablet 20 mg PO DAILY 5 Days Qty: 5 0RF ketorolac 10 mg tablet 10 mg PO TID PRN (Reason: pain) 5 Days Qty: 15 0RF Rx Instructions: Tolerated IM or IV in department lidocaine 5 % adhesive patch,medicated 1 patch topical DAILY PRN (Reason: pain) Qty: 15 0RF Rx Instructions: leave on most painful area for up to 12 hrs No Action sulfamethoxazole-trimethoprim [Bactrim DS] 800-160 mg tablet 1 tab PO Q12H 5 Days Qty: 10 0RF cephalexin 500 mg capsule 500 mg PO BID Qty: 27 0RF omeprazole 20 mg capsule,delayed release(DR/EC) 20 mg PO QAM clonazepam 0.5 mg tablet 0.5 mg PO DAILY PRN Referrals: [facility] [place] [facility] [Provider Group] - 2 days Spine[facility] Phys[facility] [Provider Group] - 2 days Physician,Unknown J [Primary Care Provider] - 2 days Stand Alone Forms: Work/School Release Print Language: Cymraes
[2023-12-17 10:31] LABS: MANUAL DIFF FLAG NO
[2023-12-17 10:33] LABS: Basophils Percent Auto 0.3 % (0-2); Eosinophils Absolute Auto 0.2 X10*3/uL (0.0-0.4); Eosinophils Percent Auto 2.4 % (0-4); Hematocrit 38.1 % (37.0-47.0); Hemoglobin 12.8 g/dl (12.0-16.0); Imm Gran Abs Auto 0.05 X10*3/uL (0.00-0.03); Imm Gran Pct Auto 0.7 % (0.0-0.4); Lymphocytes Absolute Auto 2.9 X10*3/uL (1.2-4.9); Lymphocytes Percent Auto 38.6 % (20-40); Mean Corpuscular HGB Conc 33.6 g/dl (31.0-35.0); Mean Corpuscular Hemoglobin 27.6 pg (27.0-33.0); Mean Corpuscular Volume 82.3 fL (80.0-98.0); Mean Platelet Volume 9.2 fL (9.4-12.3); Monocytes Absolute Auto 0.5 X10*3/uL (0.1-1.2); Monocytes Percent Auto 7.2 % (2-11); Neutrophils Absolute Auto 3.8 x10*3/uL (2.0-8.3); Neutrophils Percent Auto 50.8 % (45-73); Platelet Count 204 X10*3/uL (160-400); Red Blood Count 4.63 X10*6/uL (4.20-5.50); Red Cell Distribution Width 12.5 % (11.0-16.0); White Blood Count 7.5 X10*3/uL (4.8-10.8)
[2023-12-17] MEDS: Ketorolac Tromethamine 15 MG/ML VIAL 30 MG IVPUSH (10:44)
[2023-12-17] MEDS: Morphine Sulfate 4 MG/ML CARTRIDGE IVPUSH (10:46)
[2023-12-17 10:53] LABS: Alanine Aminotransferase 12 U/L (0-31); Albumin Level 4.2 g/dL (3.5-5.0); Alkaline Phosphatase 39 U/L (39-117); Anion Gap 12 (12-20); Aspartate Amino Transferase 17 U/L (5-31); Bilirubin Total 0.6 mg/dL (0.0-1.0); Blood Urea Nitrogen 17 mg/dL (9-16); Calcium 9.3 mg/dL (8.4-10.2); Carbon Dioxide 30 mmol/L (22-29); Chloride 103 mmol/L (96-108); Creatinine Clr Calc Pharmacy 67.6; Estimated Glomerular Filt Rate > 60; Glucose Random 92 mg/dL (60-115); Sodium 141 mmol/L (135-145); Total Protein 6.8 g/dL (6.5-8.0)
[2023-12-17 10:56] LABS: Appearance Urine Clear; Color Urine Yellow; Glucose Urine UA Negative (Negative); Leukocyte Esterase Urine Negative (Negative); Nitrite Urine Negative (Negative); PH 7.5 (5.0-9.0); Specific Gravity - Urine 1.015 (1.005-1.025); Urine Blood Negative (Negative); Urine Ketones Negative (Negative); Urine Protein Negative (Neg-Trace)
[2023-12-17] MEDS: iohexoL 350 MG/ML 100 ML INFUS..BTL IV (11:09)
--- NOTE | 2023-12-17 11:11 | PC.NURSE ---
pt to ED with severe back pain for a few weeks. She says she was here a couple of days ago and DC'ed with ABX for a UTI. She has not had any relief. Pt says the pain is unbearable. A couple of days ago she started having pain in her abdomen as well.. Pt is anxious and tearful. 20g IV left AC, medicated per MAR before CT scan.
[2023-12-17] MEDS: diazePAM 2 MG TABLET PO (13:22)
--- NOTE | 2023-12-17 14:11 | PC.NURSE ---
pt walked around dept a few times. Reports no pain while ambulating.
== END 2023-12-17 14:37 | disposition home or self-care (01) ==
PROVIDERS: Physician Assistant; Emergency Provider Internal Medicine
DX: M54.16 Radiculopathy, lumbar region (principal); K76.89 Other specified diseases of liver; Z79.899 Other long term (current) drug therapy
CPT/HCPCS: 36415; 74177; 80053; 81003; 85025; 96374; 96375; 99284; 99285; J1885; J2270; Q9967

== ENCOUNTER 2023-12-19 15:25 | Outpatient (REF) | payer OTHER, SELFPAY ==
--- NOTE | ~2023-12-19 | MR_ITS ---
EXAMINATION: MR ABDOMEN WITHOUT AND WITH CONTRAST CLINICAL INFORMATION: Hepatic mass COMPARISON: CT abdomen and pelvis 12/17/2023 TECHNIQUE: MR abdomen was performed without and with use of 7.5 mL intravenous Gadavist gadolinium contrast. Postcontrast images are performed in multiphase dynamic sequences. Imaging was performed in 3 planes. FINDINGS: LUNG BASES: No pleural effusions. Bilateral breast prosthesis. LIVER, GALLBLADDER, AND BILIARY TREE: Liver is enlarged measuring measuring approximately 21 cm in the craniocaudal dimension. There is signal drop on the out of phase images suggesting hepatic steatosis. Multiple T1 hypointense, T2 bright nonenhancing simple cysts scattered throughout the liver. For instance a lobulated simple cyst in the left hepatic lobe segment IVb measures up to 5.6 cm, 3:27. Another lobulated cyst in the posterior right hepatic lobe segment 7 measures up to 2.7 cm. There is a lobulated 4 cm T2 hyperintense lesion in the superior left hepatic lobe segment 2 which demonstrates peripheral arterial enhancement with progressive centripetal filling on the dynamic postcontrast images, favored to represent a hemangioma, 19:26. The gallbladder is unremarkable. There is no intrahepatic biliary ductal dilation. The common bile duct is within normal limits for age measuring up to 0.7 cm. No definite filling defects along the course of the CBD to suggest choledocholithiasis. PANCREAS: No focal lesion. No ductal dilation. SPLEEN: Normal in size. No focal lesion. ADRENAL GLANDS: Unremarkable. KIDNEYS : Symmetric nephrograms. Bilateral bosniak type I and type II renal cysts, for which no dedicated follow-up imaging is required. GASTROINTESTINAL TRACT: There is no evidence of bowel obstruction. Scattered colonic diverticulosis. ABDOMINAL WALL: No significant hernia is appreciated. LYMPH NODES: No abdominal lymphadenopathy. VASCULAR: The abdominal aorta is normal in caliber. OSSEOUS STRUCTURES: Again noted calcified extradural lesion along the ventral margin of the spinal canal at the level of T10-T11 with associated mass effect on the thoracic spinal cord. Mild degenerative changes of the thoracic spine. MR/MR abdomen wo/w con IMPRESSION: 4 cm lobulated T2 hyperintense lesion in the superior left hepatic lobe segment 2 which demonstrates peripheral arterial enhancement with progressive centripetal filling on the dynamic postcontrast images, favored to represent a hemangioma . Multiple additional simple hepatic cysts as detailed. Again noted calcified extradural lesion along the ventral margin of the spinal canal at the level of of T10-T11 with associated mass effect on the thoracic spinal cord. Further evaluation with dedicated MRI of the thoracic spine is recommended. Electronically signed by: Oscar Merino MD 12/20/2023 03:59 PM EDT
[2023-12-19] MEDS: gadobutroL 7.5 ML VIAL IVPUSH (15:32)
== END 2023-12-19 15:26 | disposition home or self-care (01) ==
LOC: HO.MRI 15:25
PROVIDERS: Visit Provider Internal Medicine
DX: R16.0 Hepatomegaly, not elsewhere classified (principal)
CPT/HCPCS: 74183; A9585

== ENCOUNTER 2023-12-22 09:54 | Outpatient (AMB) | payer OTHER, SELFPAY ==
--- NOTE | 2023-12-22 10:01 | HO.SPINEOV ---
Intake Visit Reasons: calcified extradural lesion Intake Note: Ms. An is here today c/o low back pain. 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 Heath, Thank you for referring Karen to our office today. She is a pleasant 63 year old female who comes in today with a chief complaint of severe mid-low back/rib pain for the past 3-4 weeks. She reports that this pain began without any inciting incident while driving in her car home from work in [place]. When describing the pain she states that it starts in her mid back and shoots both down toward her lumbar spine and wraps around her ribs towards the front of her body. When tracking the distribution of her pain she wraps her hands from her back to the front of her body near the umbilicus. She reports a burning sensation that accompanies her left flank pain as well. She was initially trialed on ibuprofen / prednisone and sent to physical therapy for this pain. She feels as though neither of these interventions were helpful for her. She was subsequently started on oxycodone which she also reports provides very little relief. She states that she has severe pain when lying down flat, but feels better when standing up/walking. She feels her pain is worsening day by day and describes it as 10/10 back pain. She denies any issues with her balance/gait. She denies any shooting pains into her lower extremities. PMH: Right-sided rotator cuff repair, breast augmentation surgery, 2 previous sections. Anxiety, GERD. Social hx: The patient does not smoke, reports no substance use / alcohol use. Medications: Klonopin, cyclobenzaprine, lidocaine patches, omeprazole. Denies any cardiac medications. Denies any blood thinners. Allergies: Allergic to sulfa. Physical exam: The patient has 5/5 strength in her upper and lower extremities, including in her proximal muscle groups. She elicits pain to bilateral triceps testing, but is able to complete this at full strength still. She has a normal gait with no notable spasticity or antalgia. She has no significant sensational deficits. Her reflexes are 3+ in her lower extremities, most notably in her patella which is easily engaged by testing reflex hammer on her quadriceps. No clonus. (-) Babinski's bilaterally. (-) Whipple's. (-) bilateral straight leg raise. Imaging review: There is a notable loss of overall disc height at T10/[address] scan of the abdomen/pelvis completed here at [facility]. At T10/11 there is a 2.5 cm extradural calcified mass. There is no T2 signal change myelomalacia notable, at least on this imaging. This is again redemonstrated by the MRI of the abdomen/pelvis. There has been a MRI of the thoracic spine ordered which will help us better evaluate the pathology seen at this level which is only partially imaged on the MRI. Based on what I am able to see on the MRI of the abdomen/pelvis there does appear to be severe central canal stenosis as a result of this calcified mass. Impression: Karen is a pleasant 63-year-old female who comes in today with a chief complaint of mid-low back pain with radiation around her anterior trunk and down toward her lumbar spine. She reports associated neurological symptoms of a burning sensation over her left-sided flank. She has no myelopathic reflexes aside from her hyperreflexia which is reassuring. There is no signal change on imaging noted. The calcified extradural mass likely took quite some time to develop and is unlikely something that happened acutely. There is no obvious inciting incident. It seems that the patient's simply became symptomatic on her drive home from work as a result of what is likely longstanding compression. I agree with the radiology suggestion on her MRI abdomen / pelvis. I believe the patient should follow through with her thoracic MRI so we can better evaluate the compression alongside above and below segments. It is highly likely that due to the mass becoming symptomatic, and the patient having worsening pain that this will need to be addressed, however doing so may prove challenging in this part of the spine. One option may be a transkambin fusion at this level, but access to the ventral cord at this level may not be straightforward. I will review this case with the attending neurosurgeon Dr. Dorsey later today, and I will have her follow up with us once her MRI of the thoracic spine is completed. Thank you for allowing us to care for your patient. The total time spent with this visit with this patient was 65 minutes reviewing history, physical exam, MRI imaging review, and implementation of treatment plan or further diagnostic testing Segun Dorsey MD,PhD [facility] Coding Level of Care Code New Pt Level 5 (20854) Diagnoses Spinal stenosis M48.00
== END 2023-12-22 11:24 | disposition home or self-care (01) ==
PROVIDERS: PCP Internal Medicine; Referring Provider Internal Medicine; Visit Provider Physician Assistant
DX: M48.00 Spinal stenosis, site unspecified (principal)
CPT/HCPCS: 99205

== ENCOUNTER → 2023-12-22 09:54 | Outpatient (BNVA) | payer OTHER, SELFPAY | PROVIDERS: PCP Internal Medicine; Referring Provider Internal Medicine; Visit Provider Physician Assistant ==

== ENCOUNTER 2023-12-23 12:28 | Outpatient (REF) | payer OTHER, SELFPAY ==
--- NOTE | ~2023-12-23 | MR_ITS ---
EXAMINATION: MR THORACIC SPINE WITHOUT AND WITH CONTRAST CLINICAL INFORMATION: Cord compression. COMPARISON: CT abdomen and pelvis 12/19/2023. TECHNIQUE: Multiplanar MR imaging of the thoracic spine was performed without and with contrast. A total of 7.5 mL Gadavist was utilized for this examination. FINDINGS: There is a nonenhancing heavily calcified extradural structure extending from the level of the lower T9 endplate to the upper T11 endplate to the left of midline along the ventral aspect of the spinal canal causing severe canal stenosis and compression of the thoracic spinal cord. There is a short segment of increased intramedullary T2 signal intensity at and above this lesion that may represent a manifestation of myelomalacia. No syringomyelia. Findings are most consistent with an ossified disc extrusion. A few shallow protrusions and/or bulging discs causes minimal indentation the thecal sac at multiple additional levels within the thoracic spine. No neuroforaminal compromise. Limited visualization of the intrathoracic anatomy reveals no abnormal finding. Specifically no paraspinal soft tissue mass or collection. MR/MR thoracic spine wo/w con IMPRESSION: There is an ossified disc extrusion extending from the level of the lower T9 endplate to the upper T11 endplate causing severe canal stenosis and compression of the thoracic spinal cord. There is a short segment of increased intramedullary T2 signal intensity at and above this lesion that may represent a manifestation of myelomalacia. No syringomyelia. Otherwise no abnormal mass or pathological enhancement is visualized elsewhere within the [id number] of this examination. Electronically signed by: Abdon Burroughs MD 12/25/2023 03:48 PM EDT
[2023-12-23] MEDS: gadobutroL 7.5 ML VIAL IVPUSH (15:45)
== END 2023-12-23 12:29 | disposition home or self-care (01) ==
LOC: HO.MRI 12:28
PROVIDERS: Absent Provider Neurological Surgery; PCP Internal Medicine; Visit Provider Internal Medicine
DX: G95.9 Disease of spinal cord, unspecified (principal)
CPT/HCPCS: 72157; A9585

== ENCOUNTER 2024-01-04 10:37 | Emergency (ER) | payer OTHER, SELFPAY ==
--- NOTE | ~2024-01-04 | XR_ITS ---
EXAMINATION: XR RIBS, LEFT CLINICAL INFORMATION: Left-sided pain COMPARISON: None available. TECHNIQUE: 3 views of the left ribs were obtained. FINDINGS: Lungs are clear. No consolidation, pneumothorax, or pleural effusion. The cardiomediastinal silhouette and pulmonary vasculature are normal. Osseous structures are unremarkable. Ribs are intact. No fractures are identified. XR/XR ribs LT min 3V w CXR1V IMPRESSION: Unremarkable examination. Electronically signed by: Fuentes Patterson MD 01/04/2024 04:31 PM EDT
[2024-01-04 10:40] VITALS: BP 159/70; PULSE 57; RESP 18; TEMP 36.4; O2SAT 99; BMI 26.2
--- NOTE | 2024-01-04 10:44 | ECG_ITS ---
Test Reason : LUQ ABD PAIN Blood Pressure : / mmHG Vent. Rate : 052 BPM Atrial Rate : 052 BPM P-R Int : 176 ms QRS Dur : 084 ms QT Int : 430 ms P-R-T Axes : 065 055 046 degrees QTc Int : 399 ms Sinus bradycardia Otherwise normal ECG No previous ECGs available Referred By: Generic ED Physician Electronically Signed By:Jameel Fofana
[2024-01-04 11:04] LABS: MANUAL DIFF FLAG NO
[2024-01-04 11:08] LABS: Basophils Percent Auto 0.2 % (0-2); Eosinophils Absolute Auto 0.3 X10*3/uL (0.0-0.4); Eosinophils Percent Auto 5.3 % (0-4); Hematocrit 34.4 % (37.0-47.0); Hemoglobin 11.5 g/dl (12.0-16.0); Imm Gran Abs Auto 0.02 X10*3/uL (0.00-0.03); Imm Gran Pct Auto 0.4 % (0.0-0.4); Lymphocytes Absolute Auto 1.8 X10*3/uL (1.2-4.9); Lymphocytes Percent Auto 33.1 % (20-40); Mean Corpuscular HGB Conc 33.4 g/dl (31.0-35.0); Mean Corpuscular Hemoglobin 27.9 pg (27.0-33.0); Mean Corpuscular Volume 83.5 fL (80.0-98.0); Monocytes Absolute Auto 0.4 X10*3/uL (0.1-1.2); Monocytes Percent Auto 7.9 % (2-11); Neutrophils Absolute Auto 2.9 x10*3/uL (2.0-8.3); Neutrophils Percent Auto 53.1 % (45-73); Platelet Count 169 X10*3/uL (160-400); Red Blood Count 4.12 X10*6/uL (4.20-5.50); Red Cell Distribution Width 12.8 % (11.0-16.0); White Blood Count 5.4 X10*3/uL (4.8-10.8)
[2024-01-04 11:09] LABS: Appearance Urine Clear; Color Urine Yellow; Glucose Urine UA Negative (Negative); Leukocyte Esterase Urine Negative (Negative); Nitrite Urine Negative (Negative); Specific Gravity - Urine 1.015 (1.005-1.025); Urine Blood Negative (Negative); Urine Ketones Negative (Negative); Urine Protein Negative (Neg-Trace)
[2024-01-04 11:14] LABS: Bacteria Urine None Seen (None Seen); Hyaline Casts Urine 0-2 /LPF (0-2); RBC Urine 0-2 /HPF (0-2); Squamous Epithelial Cell Urine 0-2 /HPF (0-2); WBC Urine 0-5 /HPF (0-5)
[2024-01-04 11:23] LABS: Alanine Aminotransferase 13 U/L (0-31); Albumin Level 4.2 g/dL (3.5-5.0); Alkaline Phosphatase 32 U/L (39-117); Anion Gap 8 (12-20); Aspartate Amino Transferase 24 U/L (5-31); Bilirubin Direct 0.2 mg/dL (0.0-0.5); Bilirubin Total 0.9 mg/dL (0.0-1.0); Blood Urea Nitrogen 13 mg/dL (9-16); Calcium 9.6 mg/dL (8.4-10.2); Carbon Dioxide 31 mmol/L (22-29); Chloride 105 mmol/L (96-108); Creatinine Clr Calc Pharmacy 86.7; Estimated Glomerular Filt Rate > 60; Glucose Random 85 mg/dL (60-115); Lipase 17 U/L (8-78); Potassium 3.8 mmol/L (3.3-5.1); Sodium 140 mmol/L (135-145); Total Protein 6.4 g/dL (6.5-8.0)
--- NOTE | 2024-01-04 11:24 | ED_ITS ---
HPI - General Adult General Chief complaint: General Medical Stated complaint: Abd pain radiating to back Time Seen by Provider: 01/04/24 11:12 Source: patient Mode of arrival: ambulatory Limitations: no limitations History of Present Illness ED Provider: MIKE MILLER PA-C HPI narrative: 63 year old female with pmhx significant for anxiety and GERD presents to the ED today for evaluation of burning left flank pain x weeks. Pain is isolated to her left flank and wraps around to her left lower ribcage. No radiation into extremity or jaw. Pain is worse with movement. Endorses pain with hitting bumps in the car on her way to the ED today. She currently follows with neuro spine for spinal stenosis. She had thoracic MRI completed and has an appointment with them on Tuesday (in 2 days) to discuss surgery. She was prescribed oxycodone TID for pain control in the meantime which has been helping with her pain at home. Her last dose was at 0600 this morning. She states this is the same pain that she currently sees neuro/spine for, unchanged. She is not used to waking up with the pain present, which was the case this morning, and contacted her PCP with this concern. Her PCP advised her to come to the ED to rule out cardiac etiology. Denies headache, dizziness, palpitations, chest pain, shortness of breath, nausea or vomiting, abdominal pain. Denies fever, chills, saddle anesthesia, numbness/tingling/weakness of her lower extremities, difficulty ambulating. Denies history of IV drug use. Denies previous spinal surgery. She does endorse 1 episode of urinary frequency this morning. Denies dysuria or hematuria. Reports recently being treated for UTI. Related Data Home Medications ?Medication ?Instructions ?Recorded ?Confirmed clonazepam 0.5 mg tablet 0.5 mg PO DAILY PRN Anxiety 08/03/21 01/04/24 omeprazole 20 mg capsule,delayed 20 mg PO DAILY@0630 08/03/21 01/04/24 release betamethasone, augmented 0.05 % 1 appl topical BID PRN Rash 01/04/24 01/04/24 topical cream docusate sodium 100 mg capsule 100 mg PO BID PRN Constipation 01/04/24 01/04/24 ibuprofen 800 mg tablet 800 mg PO TID PRN Pain 01/04/24 01/04/24 psyllium 1 packet PO DAILY PRN Constipation 01/04/24 01/04/24 Previous Rx's ?Medication ?Instructions ?Recorded cyclobenzaprine 10 mg tablet 10 mg PO BEDTIME PRN muscle spasm 12/17/23 #7 tabs lidocaine 5 % topical patch 1 patch topical DAILY PRN pain #15 12/17/23 ea oxycodone 5 mg tablet 5 mg PO Q6H PRN pain 2 days #8 tabs 12/25/23 Allergies Allergy/AdvReac Type Severity Reaction Status Date / Time Sulfa (Sulfonamide Allergy Rash Verified 01/04/24 10:42 Antibiotics) Review of Systems 2 Review of Systems: Constitutional: No fever, chills, fatigue, night sweats, weight changes ENT/Mouth: No ear pain, hearing loss, nasal congestion, sinus pain, rhinorrhea, sore throat Eyes: No eye pain, swelling, redness, vision changes, discharge Cardio: No chest pain, palpitations, SUH, orthopnea, peripheral edema Pulm: No SOB, cough, sputum, wheezing, dyspnea, hemoptysis GI: No nausea, vomiting, hematemesis, abdominal pain, diarrhea, constipation, hematochezia, melena : No irregular bleeding, dysuria, urgency, hesitancy, hematuria, urinary flow changes, urinary incontinence or retention, +flank pain, +urinary freq MSK: No back pain, neck pain, joint pain, myalgias Skin: No lesions, rashes Neuro: No weakness, numbness, paresthesias, LOC, dizziness, headache Psych: No anxiety/panic, depression, SI/HI, AH/VH All other systems reviewed and are negative. [facility] Past Medical History Attestation statement: The following information was validated with the patient. Source: old records reviewed and nursing notes reviewed Medical History Overweight (BMI 25.0-29.9) History of deviated nasal septum History of uterine fibroid Surgical History History of root canal procedure Hx of section History of partial hysterectomy Hx of rotator cuff surgery Family History Family History Father Diverticula of colon Mother Glaucoma Obesity Brother No problems noted. Brother No problems noted. Brother No problems noted. Sister No problems noted. Son No problems noted. Social History Social History Alcohol intake: never Smoked in Last 30 Days: No Use of substances other than those prescribed or required for medical reasons: Yes Substance Use Type: Marijuana Advance Directives: No Physical Exam ED Vital Signs: Vital Signs - 24 hr 01/04/24 10:40 01/04/24 11:30 01/04/24 14:00 Temperature 97.6 F 97.8 F Pulse Rate 57 59 58 Respiratory Rate 18 15 12 Blood Pressure 159/70 H 153/69 H 131/68 Pulse Oximetry 99 97 98 Oxygen Delivery Method Room Air Room Air Room Air 01/04/24 15:59 Temperature 98.5 F Pulse Rate 55 Respiratory Rate 15 Blood Pressure 136/64 Pulse Oximetry 97 Oxygen Delivery Method Room Air BMI result Body Mass Index 26.2 Patient hypertensive, vitals otherwise WNL General: Well appearing, in no acute distress. Skin: Warm, dry, intact. No rashes or lesions. Head: Normocephalic, atraumatic. EENT: Hearing is intact b/l. Conjunctiva clear. PERRLA. EOM intact. Moist mucous membranes.? Neck: Supple without LAD? Cardiac: Chest wall symmetric. RRR. Tender to palpation over left flank and left lower ribcage without palpable deformity, crepitus. No overlying skin changes or rashes. Lungs: Normal respiratory effort without accessory muscle use. CTA bilaterally. No rales, rhonchi, or wheezes.? Abdomen: Soft, non-tender, non-distended. No rebound tenderness or guarding. Positive BS x4. Back: No midline spinous or paraspinal tenderness. No step off deformity. Ext: Upper and lower extremities atraumatic, without tenderness, deformity, swelling or erythema. Full ROM throughout. Neuro: AOx3. Normal speech. Strength 5/5 intact throughout. No saddle anesthesia. Sensation intact to light touch. NV intact distally. Reflexes 2+ bilaterally. Ambulating with steady gait. Psych: Appropriate mood and affect. Responds appropriately to questions. Course Course Course Narrative: 1446 -- CBC without leukocytosis or left shift. Normocytic anemia, H and H above transfusion threshold. Chemistry without acute electrolyte abnormality requiring intervention. No JOSE. Normal liver function. Troponin undetectable. Lipase WNL. Urine negative for infection or blood. > medicated with 5 mg oxycodone > x-ray pending 1655 -- xr without fracture or pneumo. work up unremarkable. patient's pain is well-controlled with oxycodone. Her symptoms are unchanged since she followed up with neuro spine last. She has an appointment with them in 2 days. I feel it is reasonable discharging her home with continued pain control until follow up with neuro spine. No concern for cord compression or worsening spinal stenosis. Medications Administered Discontinued Medications Generic Name Dose Route Start Last Admin Trade Name Freq PRN Reason Stop Dose Admin Oxycodone HCl 5 mg 01/04/24 14:27 01/04/24 14:35 Oxycodone Hcl Immed Release 5 Mg Tablet PO 01/04/24 14:28 5 mg ONCE ONE Administration Medical Decision Making Medical Decision Making [facility] Narrative: 63 year old female with pmhx significant for anxiety and GERD presents to the ED today for evaluation of burning left flank pain x weeks. Initially hypertensive to 159/70 on arrival. Vitals otherwise WNL. Not tachycardic. Not hypoxic. On exam, she is tender to palpation over left flank and left lower ribcage without palpable deformity, crepitus. No overlying skin changes or rashes. RRR. Lungs are CTA bilaterally. No midline spinous tenderness or step-off deformity. Exam is consistent with continued nerve pain due to spinal stenosis. Pain is unchanged from previous back pain, well controlled with oxycodone. Presentation not consistent with shingles. Unlikely cauda equina, Guillain-[place], epidural abscess, cord compression. Exam without evidence of volume overload. EKG without signs of active ischemia. Given the timing of pain to ED presentation, plan to send single troponin evaluate for NSTEMI. Presentation not consistent with acute PE, pneumothorax, thoracic aortic dissection, cardiac effusion or tamponade. Plan: labs, troponin, EKG, CXR, pain control, reassessment Differential Diagnosis Differential Diagnoses: The differential diagnosis associated with the presentation includes As above Admission/Observation Not indicated Lab Data [facility] Lab Attestation statement: I reviewed the patient's lab results. As above 01/04/24 11:01 01/04/24 11:01 Labs: Lab Results 10/23/24 Range/Units 11:01 WBC 5.4 (4.8-10.8) X10*3/uL RBC 4.12 L (4.20-5.50) X10*6/uL Hgb 11.5 L (12.0-16.0) g/dl Hct 34.4 L (37.0-47.0) % MCV 83.5 (80.0-98.0) fL MCH 27.9 (27.0-33.0) pg MCHC 33.4 (31.0-35.0) g/dl RDW 12.8 (11.0-16.0) % Plt Count 169 (160-400) X10*3/uL MPV 10.0 (9.4-12.3) fL Immature Gran % (Auto) 0.4 (0.0-0.4) % Neut % (Auto) 53.1 (45-73) % Lymph % (Auto) 33.1 (20-40) % [place] % (Auto) 7.9 (2-11) % Eos % (Auto) 5.3 H (0-4) % Baso % (Auto) 0.2 (0-2) % Lymph # (Auto) 1.8 (1.2-4.9) X10*3/uL [place] # (Auto) 0.4 (0.1-1.2) X10*3/uL Eos # (Auto) 0.3 (0.0-0.4) X10*3/uL Baso # (Auto) 0.0 (0.0-0.2) X10*3/uL Abs Immat Gran (auto) 0.02 (0.00-0.03) X10*3/uL Absolute Neuts (auto) 2.9 (2.0-8.3) x10*3/uL Absolute Nucleated RBC 0.000 (0.0-0.012) X10*3/uL Nucleated RBC % (auto) 0.0 (0.0-0.2) /100WBC Sodium 140 (135-145) mmol/L Potassium 3.8 (3.3-5.1) mmol/L Chloride 105 (96-108) mmol/L Carbon Dioxide 31 H (22-29) mmol/L Anion Gap 8 L (12-20) BUN 13 (9-16) mg/dL Creatinine 0.69 (0.5-1.4) mg/dL Estim Creat Clear Calc 86.7 Estimated GFR > 60 Random Glucose 85 (60-115) mg/dL Calcium 9.6 (8.4-10.2) mg/dL Total Bilirubin 0.9 (0.0-1.0) mg/dL Direct Bilirubin 0.2 (0.0-0.5) mg/dL AST 24 (5-31) U/L ALT 13 (0-31) U/L Alkaline Phosphatase 32 L (39-117) U/L Troponin I High Sens < 2.7 (<3.5-17.0) ng/L Total Protein 6.4 L (6.5-8.0) g/dL Albumin 4.2 (3.5-5.0) g/dL Lipase 17 (8-78) U/L Urine Color Yellow Urine Appearance Clear Urine pH 8.0 (5.0-9.0) Ur Specific [place] 1.015 (1.005-1.025) Urine Protein Negative (Neg-Trace) mg/dL Urine Glucose (UA) Negative (Negative) mg/dL Urine Ketones Negative (Negative) mg/dL Urine Blood Negative (Negative) Urine Nitrite Negative (Negative) Ur Leukocyte Esterase Negative (Negative) Urine RBC 0-2 (0-2) /HPF Urine WBC 0-5 (0-5) /HPF Ur Squamous Epith Cells 0-2 (0-2) /HPF Urine Bacteria None Seen (None Seen) Hyaline Casts 0-2 (0-2) /LPF Independent Interpretation I performed an independent interpretation of an: EKG and Plain X-Ray Interpretation: CKD showing sinus bradycardia at rate of 52 beats per minute, QT 430, QTC 3 9, no acute ischemic changes or ST elevations. Ribs/chest x-ray without fracture or pneumothorax, agree with radiologist's interpretation. Radiology Impression Discussion of test interpretation with radiology: I have reviewed the radiologist's reading. Radiologist Impression: EXAMINATION: MR THORACIC SPINE WITHOUT AND WITH CONTRAST CLINICAL INFORMATION: Cord compression. COMPARISON: CT abdomen and pelvis 12/19/2023. TECHNIQUE: Multiplanar MR imaging of the thoracic spine was performed without and with contrast. A total of 7.5 mL Gadavist was utilized for this examination. FINDINGS: There is a nonenhancing heavily calcified extradural structure extending from the level of the lower T9 endplate to the upper T11 endplate to the left of midline along the ventral aspect of the spinal canal causing severe canal stenosis and compression of the thoracic spinal cord. There is a short segment of increased intramedullary T2 signal intensity at and above this lesion that may represent a manifestation of myelomalacia. No syringomyelia. Findings are most consistent with an ossified disc extrusion. A few shallow protrusions and/or bulging discs causes minimal indentation the thecal sac at multiple additional levels within the thoracic spine. No neuroforaminal compromise. Limited visualization of the intrathoracic anatomy reveals no abnormal finding. Specifically no paraspinal soft tissue mass or collection. MR/MR thoracic spine wo/w con IMPRESSION: There is an ossified disc extrusion extending from the level of the lower T9 endplate to the upper T11 endplate causing severe canal stenosis and compression of the thoracic spinal cord. There is a short segment of increased intramedullary T2 signal intensity at and above this lesion that may represent a manifestation of myelomalacia. No syringomyelia. Otherwise no abnormal mass or pathological enhancement is visualized elsewhere within the [id number] of this examination. Electronically signed by: Abdon Burroughs MD 12/25/2023 03:48 PM EDT RP Independent Historian Clinical information obtained from an independent historian. History obtained from or confirmed by: Spouse () External Record Review External record reviewed: Inpatient record Prescription Management I considered prescription management with: Pain Medication Social Determinants Patient?s care significantly limited by Social Determinants of Health including: Other Social Determinant of Health Critical Care Time Critical Care Time Critical Care Time: No Discharge Plan Discharge Clinical Impression: Left flank pain, Atypical chest pain Patient Disposition: Home, Self-Care Instructions: Flank Pain (ED), Thoracic Pain (ED) Additional Instructions: Your blood work today is reassuring. Your cardiac enzyme is normal. Your EKG shows slightly slow heart rate, EKG otherwise normal. Your chest/ rib xray is normal. Keep your follow-up appointment with neuro spine on Tuesday. Continue taking oxycodone at home for pain control. Return with new or worsening symptoms. In the case of an emergency call 911. Prescriptions: No Action oxycodone 5 mg tablet 5 mg PO Q6H PRN (Reason: pain) 2 Days Qty: 8 0RF Rx Instructions: Partial Fill upon patient request. cyclobenzaprine 10 mg tablet 10 mg PO BEDTIME PRN (Reason: muscle spasm) Qty: 7 0RF lidocaine 5 % adhesive patch,medicated 1 patch topical DAILY PRN (Reason: pain) Qty: 15 0RF Rx Instructions: leave on most painful area for up to 12 hrs ibuprofen 800 mg tablet 800 mg PO TID PRN (Reason: Pain) betamethasone, augmented 0.05 % cream 1 appl topical BID PRN (Reason: Rash) Metamucil Packet 1 packet PO DAILY PRN (Reason: Constipation) Rx Instructions: mix into at least 8 oz of water or juice before administering docusate sodium 100 mg capsule 100 mg PO BID PRN (Reason: Constipation) omeprazole 20 mg capsule,delayed release(DR/EC) 20 mg PO DAILY@0630 clonazepam 0.5 mg tablet 0.5 mg PO DAILY PRN (Reason: Anxiety) Referrals: Abdon Heath DO [Primary Care Provider] - Print Language: Faroese
[2024-01-04 11:30] VITALS: BP 153/69; PULSE 59; RESP 15; O2SAT 97
--- NOTE | 2024-01-04 12:12 | PHA.MEDREC ---
Pharmacy Consult ? Medication Reconciliation Pharmacy has completed the medication reconciliation, utilized list from patient's medical record faxed over to pharmacy.
[2024-01-04 12:18] LABS: Troponin-I High Sensitivity < 2.7 ng/L (<3.5-17.0)
[2024-01-04 14:00] VITALS: BP 131/68; PULSE 58; RESP 12; TEMP 36.6; O2SAT 98
[2024-01-04] MEDS: oxyCODONE HCl Immed Release 5 MG TABLET PO (14:35)
[2024-01-04 15:59] VITALS: BP 136/64; PULSE 55; RESP 15; TEMP 36.9; O2SAT 97
[2024-01-04 17:26] VITALS: BP 136/64; PULSE 55; RESP 15; TEMP 36.9; O2SAT 97
== END 2024-01-04 17:27 | disposition home or self-care (01) ==
PROVIDERS: Emergency Provider Emergency Medicine; PCP Internal Medicine
DX: R10.9 Unspecified abdominal pain (principal); R07.89 Other chest pain; R00.1 Bradycardia, unspecified; R35.0 Frequency of micturition; M54.14 Radiculopathy, thoracic region; M48.00 Spinal stenosis, site unspecified
CPT/HCPCS: 36415; 71101; 80053; 81001; 82248; 83690; 84484; 85025; 93005; 99283; 99284

== ENCOUNTER → 2024-01-04 10:44 | Outpatient (BNV) | payer OTHER, SELFPAY | PROVIDERS: Emergency Provider Emergency Medicine; PCP Internal Medicine; Visit Provider Internal Medicine Cardiovascular Disease | DX: R10.10 Upper abdominal pain, unspecified (principal) | CPT/HCPCS: 93010 ==

== ENCOUNTER 2024-01-06 14:22 | Outpatient (AMB) | payer OTHER, SELFPAY ==
--- NOTE | 2024-01-06 14:30 | HO.SPINEOV ---
Intake Visit Reasons: MRI f/u possible sx discussion Intake Note: Mrs. An is here today to F/u on the results of her MRI and to Discuss Surgery Registered Occupational Therapist Required: No Allergies Sulfa (Sulfonamide Antibiotics) Allergy (Verified 01/04/24 10:42) Rash Assessment & Plan Assessment & Plan (1) Thoracic radiculopathy due to intervertebral disc disorder: Code(s): M54.14 - Radiculopathy, thoracic region Category: Medical Plan: Dear colleague, On 01/06/2024 I saw for follow-up Karen An, was recently diagnosed with severe thoracic radiculopathy. Imaging reviewed a large calcified process behind the body of the T10 with spinal cord compression and compression of the left exiting nerve root. The good news is that the patient is not myelopathic on exam. She does have a left-sided thoracic radiculopathy without sensory deficits. I reviewed the imaging in detail with the patient and her and I think the best approach would be to continue medical management. I am going to add gabapentin 300 mg 3 times a day and I want her to slowly reduce her oxycodone. Most of the times neuropathic pain will recover itself within 4-6 weeks. However, if the pain is not resolving to adequate levels then I would do a posterior laminotomy and costotransversectomy to partially resect the mass from a left-sided approach to decompress the nerve root and spinal cord. I spent 35 minutes in his consult reviewing imaging and discussing plan of care. I will follow-up with the patient in 4 weeks. Toni Dorsey MD, PhD Spine Fellowship Trained Neurosurgeon Director, [facility] Medications: New gabapentin 300 mg at night for 2 days, then increase to 600 mg at night, finally 900 m tabs at night and one in the am 300 mg PO TID 90 caps 0RF nerve pain MDD 900 mg M54.14 - Radiculopathy, thoracic region Coding Level of Care Code Est Pt Level 4 (27125) Diagnoses Thoracic radiculopathy due to intervertebral disc disorder M54.14
== END 2024-01-06 15:15 | disposition home or self-care (01) ==
PROVIDERS: PCP Internal Medicine; Visit Provider Neurological Surgery
DX: M54.14 Radiculopathy, thoracic region (principal)
CPT/HCPCS: 99214

== ENCOUNTER → 2024-01-06 14:22 | Outpatient (BNVA) | payer OTHER, SELFPAY | PROVIDERS: PCP Internal Medicine; Visit Provider Neurological Surgery ==

== ENCOUNTER 2024-02-03 10:50 | Outpatient (AMB) | payer OTHER, SELFPAY ==
--- NOTE | 2024-02-03 11:02 | HO.SPINEOV ---
Intake Visit Reasons: 4 week follow up Intake Note: Mrs. An is here today for her 4 week f/u. Dinkey Engine Mechanic Required: No Allergies Sulfa (Sulfonamide Antibiotics) Allergy (Verified 01/04/24 10:42) Rash Assessment & Plan Assessment & Plan (1) Thoracic radiculopathy due to intervertebral disc disorder: Code(s): M54.14 - Radiculopathy, thoracic region Category: Medical Plan Mrs An is here in follow-up. Please see Dr. Dorsey last note for the specifics of her problem. Her pain levels have been almost completely gone on the gabapentin. She has not experienced any tingling, numbness, bowel or bladder incontinence to report. On my exam, she has good strength in the lower extremities, slightly brisk reflexes at the knees but no clonus. Her gait is normal without any signs of ataxia. It sounds like for now she is doing well and will not need surgery. We did discuss the warning signs of myelopathy and she will call us if she develops any of these. In the meantime I will schedule her another 3 month follow-up just to check in on her. I will update Dr. Dorsey on her status. Total amount of time spent in this visit was 20 minutes in discussion of symptoms, thoracic MRI and CT imaging results and subsequent plan of care Robert Dorsey MD,PhD [facility] Coding Level of Care Code Est Pt Level 3 (18514) Diagnoses Thoracic radiculopathy due to intervertebral disc disorder M54.14
== END 2024-02-03 11:18 | disposition home or self-care (01) ==
PROVIDERS: PCP Internal Medicine; Visit Provider Physician Assistant
DX: M54.14 Radiculopathy, thoracic region (principal)
CPT/HCPCS: 99213

== ENCOUNTER 2024-08-20 09:17 | Outpatient (AMB) | payer OTHER, SELFPAY ==
--- NOTE | 2024-08-20 09:18 | A.OFFPC_ITS ---
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 Accompanied by: Self / Same As Patient Allergies Sulfa (Sulfonamide Antibiotics) Allergy (Verified 08/20/24 10:31) Rash Medication List - Last Reconciled 08/20/24 by Elaine Chinchilla PA-C clonazepam 1 mg (2 x 0.5 mg) PO DAILY PRN omeprazole 20 mg PO DAILY@0630 psyllium husk (Metamucil) 1 tbsp PO DAILY Tobacco use date assessed: 08/20/24 Dental Screening Dental Screen Date: 08/20/24 Did you have a dental visit in the last 12 months?: Yes Did you have a dental problem in the last 6 months where you did not have access to dental care?: No Was dental information given to patient?: Patient has dentist HPI physical HPI Details The patient is a 63-year-old female presenting with concerns regarding chronic foot pain and a need for a routine physical examination. 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 These have varied in effectiveness, previously lasting several years, but recently achieving limited relief. 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 An MRI confirmed the presence of Saavedra?s neuroma, with cortisone injections providing minimal improvement. Surgery was suggested but delayed due to concerns of potential post-operative toe numbness and temporary relief following an injection. Efforts to manage discomfort via specialized orthotic solutions have been hampered by difficulty in fitting such devices into shoes. The patient has reported exacerbated foot discomfort after participating in an event where she stood for an extended period on a hard surface. Consideration was given to exploring acupuncture as a possible alleviative measure, and recent x-ray diagnostics were recommended to better assess the condition. Patient also reports that she would like her heart evaluated due to her brother had a sudden RI recently after he went to his PCP and had a normal exam. Although her brother went to the primary care due to tingling to 1 of his hands. Two weeks after the patient's brother who was 54 had a sudden RI and . 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 - Reports her foot pain impacts daily ac tivities and work-related functions. - Utilizes anti-fatigue mats for symptom relief during events. [facility] Medical History (Updated 08/20/24 @ 10:37 by Elaine Chinchilla PA-C) Hyperlipidemia Pure hypercholesterolemia, unspecified Saavedra's neuroma of right foot Annual physical exam Bilateral foot pain Bilateral ankle pain Family history of heart attack Fatigue Encounter for brief counseling about health care proxy document (~08/20/24) Full code status (~08/20/24) Plantar fasciitis, bilateral History of mammogram (~02/17/24) Dyspepsia History of menopause Depression Anxiety disorder Adjustment disorder with depressed mood Overweight (BMI 25.0-29.9) History of deviated nasal septum History of uterine fibroid Surgical History History of colonoscopy (~04/19/23) History of root canal procedure Hx of section History of partial hysterectomy Hx of rotator cuff surgery Family History Father Diverticula of colon Mother Glaucoma Obesity Brother No problems noted. Brother No problems noted. Brother No problems noted. Sister No problems noted. Son No problems noted. Social History Housing: House Alcohol intake: current Alcohol intake frequency: does not drink Patient Tobacco Use Status: Former Tobacco user Substance Use Type: Marijuana service: No Current occupational status: employed Cognitive needs: No Hearing needs: No Vision needs: Yes (rx glasses) Questionnaire PHQ-9 Over the last 2 weeks, how often have you been bothered by any of the following problems? 1. Little interest or pleasure in doing things: not at all 2. Feeling down, depressed, or hopeless: not at all 3. Trouble falling or staying asleep, or sleeping too much: not at all 4. Feeling tired or having little energy: not at all 5. Poor appetite or overeating: not at all 6. Feeling bad about yourself - or that you are a failure or have let yourself or your family down: not at all 7. Trouble concentrating on things, such as reading the newspaper or watching television: not at all 8. Moving or speaking so slowly that other people could have noticed. Or the opposite - being so fidgety or restless that you have been moving around a lot more than usual: not at all 9. Thoughts that you would be better off or of hurting yourself in some way: not at all Total score: 0 Depression Screening Interpretation: Negative Depression Screening Done: Yes 61702 - PHQ-9 Billing: Yes Source: Developed by Drs. Abdon Parmar, Sultana Montgomery, Eduin Bustillo and colleagues, with an educational freddie from [employer]. Thrive Questionnaire Date Thrive assessed: 08/20/24 I am a: Patient What is your living situation today?: I have a steady place to live Within the past 12 months, did the food you bought not last and you didn't have the money to get more?: Never true Within the past 12 months, did you worry whether your food would run out before you got money to buy more?: Never true Do you have trouble paying for medicines?: No Do you have trouble getting transportation to medical appointments?: No Do you have trouble paying your heating and electricity bill?: No Do you have trouble taking care of your child, family member or friend?: No Do you have trouble with day-to-day activities such as bathing, preparing meals, shopping, managing finances, etc.?: No Are you currently unemployed and looking for a job?: No Are you interested in more education?: No Please select the resources that you would like help with: None THRIVE Score: 0 AUDIT C Alcohol Use Questionnaire (AUDIT-C) 1. How often do you have a drink containing alcohol?: Never 3. How often do you have six or more drinks on one occasion?: Never Total Score: 0 Score Reviewed/Action Taken: No ESTEBAN-7 AMB Questionnaire ESTEBAN-7 Date ESTEBAN - 7 assessed: 08/20/24 Feeling nervous, anxious, or on edge: 1 = Several days Not being able to stop or control worryin = More than half the days Worrying too much about different things: 2 = More than half the days Trouble relaxin = Several days Being so restless that it is hard to sit still: 0 = Not at all Becoming easily annoyed or irritable: 1 = Several days Feeling afraid as if something awful might happen: 0 = Not at all Total ESTEBAN-7 score (0-4 normal; 5-9 mild; 10-14 moderate; 15-21 severe): 7 Source: Developed by Drs. Abdon Parmar, Sultana Montgomery, Eduin Bustillo and colleagues, with an educational freddie from [employer]. ESTEBAN-7 Assessment Billing ESTEBAN-7 Assessment Tool: ESTEBAN-7 Assessment 44721 Review of Systems Const Details: - Musculoskeletal: Reports foot pain related to plantar fasciitis and nerve pain due to Saavedra?s neuroma. - General: Denies unintentional weight loss or gain asides from weight changes due to dietary management. Physical exam (Primary Care) Vital Signs: Last Vital Signs Temp 97.8 F 08/20/24 09:20 Pulse 84 08/20/24 09:20 Resp 14 08/20/24 09:20 BP 126/60 08/20/24 09:20 Pulse Ox 98 08/20/24 09:20 Oxygen Delivery Method Room Air 08/20/24 09:20 Care Plan Goal for BP management: <140/90 at Goal BMI result Body Mass Index 27.8 BMI Assessment/Plan discussion: High BMI High, discussed plan: lifestyle, weight reduction, dietary, physical activity and alcohol moderation Tobacco/Smoking Status: Tobacco use Status Tobacco use date assessed 08/20/24 08/20/24 09:28 Patient Tobacco Use Status Former Tobacco user 08/20/24 09:28 PHQ-9: PHQ-9 Score PHQ-9: Total score 0 08/20/24 09:28 Depression Screening Interpretation: Negative Thrive Assessment: Date of Thrive Assessment Date Thrive assessed 08/20/24 08/20/24 09:28 Const Other: Appearance: Alert. Oriented X3. No acute distress. Head: Normal external exam. Normocephalic. Atraumatic. Eyes: Pupils are equal, round, and reactive to light. Extraocular movements intact. Conjunctiva and sclera normal. Eyelids normal. Ears: External auditory canal normal. Tympanic membranes normal. Throat: Pharynx normal. Uvula midline. Moist mucous membranes. Neck: Normal inspection. Neck supple. Full range of motion. Cardiovascular: Normal heart rate and rhythm. Heart sound normal. No murmurs noted. Pulses normal throughout. Respiratory: No respiratory distress. Painless inspiration. Breath sounds normal. No wheezes/rales/rhonchi noted. Chest nontender. No accessory muscle usage noted or decreased air movement noted. Abdomen: Soft and nontender. No distention noted. No organomegaly noted. No visible injury noted. Back: No costovertebral angle tenderness. Full range of motion noted. Skin: Skin warm and dry. Normal skin color. Normal skin turgor. No rashes/lesions/lacerations noted. Extremities: Soft tissue swelling noted of right lateral ankle possibly bursitis. Patient denies tenderness to palpation to right lateral ankle although reports right foot pain. Left foot with pain to the 5th metatarsal and ankle joint. No obvious deformities or joint effusions or soft tissue swelling noted. Achilles tendon is intact bilaterally. No lower extremity edema or calf tenderness is noted. Otherwise all other extremities exhibit normal range of motion nontender. Neuro: Oriented X 3. No motor deficit. No sensory deficit. Reflexes normal. Results Reviewed Results Reviewed: - MRI: Confirmed Saavedra?s Neuroma in the right foot. Coding Level of Care Code New Pt Level 4 (98935) New Pt Prev Care 40-64y(26073) Diagnoses Annual physical exam Z00.00 Plantar fasciitis, bilateral M72.2 Saavedra's neuroma of right foot G57.61 Bilateral foot pain M79.671; M79.672 Bilateral ankle pain M25.571; M25.572 Family history of heart attack Z82.49 Anxiety disorder F41.9 Overweight (BMI 25.0-29.9) E66.3 Pure hypercholesterolemia, unspecified E78.00 Hyperlipidemia E78.5 Encounter for brief counseling about health care proxy document Z71.89 Full code status Z78.9 Additional Codes PHQ-9 - 53000 - PHQ-9 Billing: Yes ([id number]) ESTEBAN-7 Assessment Billing - ESTEBAN-7 Assessment Tool: ESTEBAN-7 Assessment 85684 ([id number]) Time Spent (min) 55 Assessment & Plan Assessment & Plan (1) Annual physical exam: Code(s): Z00.00 - Encounter for general adult medical examination without abnormal findings Category: Medical (2) Plantar fasciitis, bilateral: Code(s): M72.2 - Plantar fascial fibromatosis Category: Medical Plan: Management of plantar fasciitis involves continued use of cortisone injections for pain relief, albeit their varied duration of efficacy. Orthotic solutions are recommended, and the patient should visit an orthotics provider for tailored footwear to effectively support the feet without causing additional discomfort. Acupuncture was suggested as an alternative therapy option. Condition is chronic and stable will continue to monitor. (3) Saavedra's neuroma of right foot: Code(s): G57.61 - Lesion of plantar nerve, right lower limb Category: Medical Plan: Saavedra?s neuroma management includes avoiding surgical options presently to prevent sensory loss, and pursuing custom orthotics to alleviate nerve-induced pain. Referral for x-ray evaluation has been made. Acupuncture is discussed as a supplementary treatment, with arrangements for delivery of services pending insurance coverage information. Condition is chronic and stable will continue to monitor. (4) Bilateral foot pain: Code(s): M79.671 - Pain in right foot; M79.672 - Pain in left foot Category: Medical Plan: Will order bilateral foot x-ray and ankle x-rays. Patient to by orthotics. Acupuncture discussed. Condition is chronic and stable continue to monitor. (5) Bilateral ankle pain: Code(s): M25.571 - Pain in right ankle and joints of right foot; M25.572 - Pain in left ankle and joints of left foot Category: Medical Plan: Will order bilateral foot x-ray and ankle x-rays. Patient to by orthotics. Acupuncture discussed. Condition is chronic and stable continue to monitor. (6) Family history of heart attack: Comment: Brother had a Sudden RI at 54 Code(s): Z82.49 - Family history of ischemic heart disease and other diseases of the circulatory system Category: Medical Plan: Will order stress test, echocardiogram. Will continue to monitor and reassess due to family history. Patient denies any cardiac related complaints at this time. (7) Anxiety disorder: Code(s): F41.9 - Anxiety disorder, unspecified Category: Medical Plan: Patient to continue clonazepam 1 mg p.o. daily PRN for insomnia/anxiety. Condit ion is chronic and stable continue to monitor (8) Overweight (BMI 25.0-29.9): Code(s): E66.3 - Overweight Category: Medical Plan: Patient to improve diet and exercise regimen. Condition is chronic and stable continue to monitor. (9) Pure hypercholesterolemia, unspecified: Code(s): E78.00 - Pure hypercholesterolemia, unspecified Category: Medical Plan: Patient currently on no statin. Will repeat labs. Patient to improved diet and exercise regimen. Condition is chronic and stable continue to monitor. (10) Hyperlipidemia: Code(s): E78.5 - Hyperlipidemia, unspecified Category: Medical Plan: Patient currently on no statin. Will repeat labs. Patient to improved diet and exercise regimen. Condition is chronic and stable continue to monitor. (11) Encounter for brief counseling about health care proxy document: Onset Date: ~08/20/24 Comment: Hema An- Code(s): Z71.89 - Other specified counseling Category: Medical Plan: and sister are healthcare proxy. Patient is a full code. Patient has original forms. Copy scanned into the patient's chart. (12) Full code status: Onset Date: ~08/20/24 Code(s): Z78.9 - Other specified health status Category: Medical Plan: Patient is a full code status. Filled out MOLST form today. Place her and her sister who is an RN as healthcare proxy. Explained the patient should discuss her advanced care planning wishes with her and sister. Patient has original forms. Copy scanned into the computer. Plan Plan Patient was informed and verbally consented to the use of an ambient scribe for clinic note documentation during this visit. 1. Plantar Fasciitis Management of plantar fasciitis involves continued use of cortisone injections for pain relief, albeit their varied duration of efficacy. Orthotic solutions are recommended, and the patient should visit an orthotics provider for tailored footwear to effectively support the feet without causing additional discomfort. Acupuncture was suggested as an alternative therapy option. 2. Saavedra?s Neuroma Saavedra?s neuroma management includes avoiding surgical options presently to prevent sensory loss, and pursuing custom orthotics to alleviate nerve-induced pain. Referral for x-ray evaluation has been made. Acupuncture is discussed as a supplementary treatment, with arrangements for delivery of services pending insurance coverage information. During the visit, we discussed the continued management of plantar fasciitis with cortisone injections and the importance of obtaining customized orthotic devices to accommodate therapeutic foot padding. Potential benefits and concerns regarding surgical intervention for Quentin?s neuroma were deliberated, leading to a decision against immediate surgery to avoid loss of sensation in toes and due to temporary relief experienced from the last cortisone injection. It was recommended that she pursue orthotic solutions for foot pain relief. We further explored acupuncture as a less invasive treatment alternative for both foot conditions. Arrangements were made for follow-up imaging studies, and the patient received instructions to consult with orthotics providers and therapeutic referral services. Orders: Orders C Reactive Protein Today Z00.00 - Encounter for general adult medical examination without abnormal findings Complete Blood Count Auto Diff Today Z.00 - Encounter for general adult medical examination without abnormal findings Comprehensive [place]. Panel Fast Today Z. - Encounter for general adult medical examination without abnormal findings Lipid Panel Today Z. - Encounter for general adult medical examination without abnormal findings Liver Panel Today Z. - Encounter for general adult medical examination without abnormal findings Vitamin B12 and Folate Today Z.00 - Encounter for general adult medical examination without abnormal findings Vitamin D 25-OH Total Today Z.00 - Encounter for general adult medical examination without abnormal findings TSH reflex Free T4 Today Z.00 - Encounter for general adult medical examination without abnormal findings Estrogen Today Z.00 - Encounter for general adult medical examination without abnormal findings Progesterone Today Z.00 - Encounter for general adult medical examination without abnormal findings XR Ankle Nayan min 3V Today M25.571 - Pain in right ankle and joints of right foot, M25.572 - Pain in left ankle and joints of left foot, M79.671 - Pain in right foot, M79.672 - Pain in left foot XR Foot Nayan 3V Today M25.571 - Pain in right ankle and joints of right foot, M25.572 - Pain in left ankle and joints of left foot, M79.671 - Pain in right foot, M79.672 - Pain in left foot Hemoglobin A1c Today Z00.00 - Encounter for general adult medical examination without abnormal findings Magnesium Today Z00.00 - Encounter for general adult medical examination without abnormal findings Prolactin Today Z00.00 - Encounter for general adult medical examination without abnormal findings Testosterone, Free/Total Today Z00.00 - Encounter for general adult medical examination without abnormal findings CA echo transthoracic complete Today R53.83 - Other fatigue, Z82.49 - Family history of ischemic heart disease and other diseases of the circulatory system CA stress test Today R53.83 - Other fatigue, Z82.49 - Family history of ischemic heart disease and other diseases of the circulatory system Referrals Acupuncture Referral M72.2 - Plantar fascial fibromatosis Medications: Refilled clonazepam 1 mg (2 x 0.5 mg) PO DAILY PRN 30 tabs 0RF Anxiety Patient Instructions: - Continue to manage foot pain with prescribed cortisone injections. - Visit specialized orthotics provider to explore custom footwear options. - Pursue acupuncture therapy to help alleviate chronic foot pain if desired. - Schedule and complete x-ray diagnostics as advised. - Monitor symptoms and report any significant changes or escalation to the healthcare provider. - Follow up with recommended podiatry or orthotic visits for ongoing treatment.
[2024-08-20 09:20] VITALS: BP 126/60; PULSE 84; RESP 14; TEMP 36.6; O2SAT 98; BMI 27.8
--- OUTSIDE RECORDS SUMMARY | 2024-08-20 09:41 | XMS_ITS | Clinical Summary ---
Author Organization [facility] Address [address] [place] [address] Phone Care Team Providers Care Cardboard Inserter Name Role Phone Kumar Abdon Primary Care Provider [phone] Surgical History Surgery Date Site/Laterality Comments BREAST ENHANCEMENT SURGERY W IMPLANT 2000 HYSTERECTOMY 2004 Partial Social History Tobacco Use Types Packs/Day Years Used Date Smoking Tobacco: Never Assessed Comments No Sex and Gender Information Value Date Recorded Sex Assigned at Not on file Legal Sex Female 6:07 PM EST Gender Identity Not on file Sexual Orientation Not on file Obstetrics History Para Term AB IAB SAB Ectopic Multiple Livin g Live Births 2 Last Filed Vital Signs Vital Sign Reading Time Taken Comments Blood Pressure - - Pulse - - Temperature - - Respiratory Rate - - Oxygen Saturation - - Inhaled Oxygen Concentration - - Weight 71.7 kg (158 lb) 02/17/2024 8:40 AM EST Height 170.2 cm (5' 7 ) 02/17/2024 8:40 AM EST Body Mass Index 24.75 02/17/2024 8:40 AM EST Plan of Treatment Health Maintenance Due Date Last Done Comments DTaP,Tdap,and Td Vaccines (1 - Tdap) 1980 Cervical Cancer Screening: Pap Smear 1982 Pneumococcal Vaccine: 50+ Years (1 of 1 - PCV) 12/19/2011 Zoster Vaccines (1 of 2) 12/19/2011 Colorectal Cancer Screening: Colonoscopy 02/13/2022 Depression Screening 02/13/2022 HIV Screening 02/13/2022 Hepatitis C Screening 02/13/2022 Social Influencers of Health Screening 02/13/2022 COVID-19 Vaccine ( season) 2023 02/17/2021, 06/22/2020, 06/01/2020 Influenza Vaccine (Season Ended) 2024 01/14/2021, 12/12/2019, 05/12/2019, Additional history exists Breast Cancer Screening 02/16/2026 02/17/20 24, 02/14/2023, 07/07/2020 RSV Immunization Adult Patients (1 - 1-dose 75+ series) 2036 HIB Vaccines Aged Out No longer eligi ble based on patient's age to complete this topic HPV Vaccines Aged Out No longer eligi ble based on patient's age to complete this topic Hepatitis A Vaccines Aged Out No long er eligible based on patient's age to complete this topic Hepatitis B Vaccines Aged Out No long er eligible based on patient's age to complete this topic IPV Vaccines Aged Out No longer eligi ble based on patient's age to complete this topic MMR Vaccines Aged Out No longer eligi ble based on patient's age to complete this topic Meningococcal ACWY Vaccine Aged Out N o longer eligible based on patient's age to complete this topic Meningococcal B Vaccine Aged Out No l onger eligible based on patient's age to complete this topic Pneumococcal Vaccine: Pediatrics (0 to 5 Years) and At-Risk Patients (6 to 64 Years) Aged Out No longer eligible based on patient's age to complete this topic RSV Immunization Patients Under 20 months Aged Out No longer eligible based on patient's age to complete this topic Varicella Vaccines Aged Out No longer eligible based on patient's age to complete this topic Procedures Procedure Name Priority Date/Time Associated Diagnosis Comments MG MAMMO DIGITAL SCREENING W GORDON BILAT Routine 02/17/2024 8:51 AM EST Encounter for screening mammogram for breast cancer from Last 3 Months or Most Recently Relevant to Health Maintenance Results * MG Mammo Digital Screening w Gordon bilat (02/17/2024 8:51 AM EST) Anatomical Region Laterality Modality Breast Bilateral Mammography 02/17/2024 10:5 8 AM EST Impressions 02/17/2024 11:01 AM EST No evidence of breast malignancy. BI-RADS CATEGORY: 1 - NEGATIVE RECOMMENDATION: Screening bilateral mammogram is recommended in 1 year. Mammo Location: [facility], [address] [place] [address], [id number], . -------- FINAL REPORT -------- Dictated By: Dianne West Dictated Date: 02/17/2024 10:58 ET Assigned Physician: Dianne West Reviewed and Electronically Signed By: Dianne West Signed Date: 02/17/2024 11:01 ET Workstation ID: [id number] Transcribed By: Self Edit Transcribed Date: 02/17/2024 10:58 ET Narrative 02/17/2024 11:01 AM EST CLINICAL: 63 years old, Female, routine annual exam. ?? COMPARISON: 02/14/2023, 07/07/2020 and 03/22/2018 ?? TECHNIQUE: Bilateral MLO and CC views were obtained digitally with 3-D mammogram (digital breast tomosynthesis). ??Implant-displaced and hfd-ljtrwhw-[id number] imaging was performed. ??Computer-aided detection was utilized in evaluation of this exam (CAD). FINDINGS: There is no evidence of suspicious mass or architectural distortion. ??No worrisome calcifications are evident. ??There has been no significant change from prior exam(s). ? Intact bilateral retropectoral saline implants. BREAST DENSITY: B - There are scattered areas of fibroglandular density. Procedure Note Dianne West MD - 02/17/2024 CLINICAL: 63 years old, Female, routine annual exam. COMPARISON: 02/14/2023, 07/07/2020 and 03/22/2018 TECHNIQUE: Bilateral MLO and CC views were obtained digitally with 3-Dmammogram (digital breast tomosynthesis). Implant-displaced gmdzos-fcwzjrq-vuwbnakez imaging was performed. Computer-aided detection wasutilized in evaluation of this exam (CAD). FINDINGS: There is no evidence of suspicious mass or architectural distortion. Noworrisome calcifications are evident. There has been no significantchange from prior exam(s). Intact bilateral retropectoral salineimplants. BREAST DENSITY: B - There are scattered areas of fibroglandular density. IMPRESSION: No evidence of breast malignancy. BI-RADS CATEGORY: 1 - NEGATIVE RECOMMENDATION: Screening bilateral mammogram is recommended in 1 year. Mammo Location: [facility], [address] [place] [address], [id number], . -------- FINAL REPORT -------- Dictated By: Dianne West Dictated Date: 02/17/2024 10:58 ET Assigned Physician: Dianne West Reviewed and Electronically Signed By: Dianne West Signed Date: 02/17/2024 11:01 ET Workstation ID: [id number] Transcribed By: Self Edit Transcribed Date: 02/17/2024 10:58 ET us Self Referral Sppl IMG BI PROCEDURES Final Resul t from Last 3 Months or Most Recently Relevant to Health Maintenance Insurance [facility] Care Teams Cardboard Inserter Relationship Specialty Start Date End Date Abdon Heath DO [address] [place] [phone] PCP - General Internal Medicine 02/16/24
== END 2024-08-20 10:27 | disposition home or self-care (01) ==
LOC: HO.HMCSH 09:17
PROVIDERS: PCP Internal Medicine; Visit Provider Physician Assistant Medical
DX: Z00.00 Encounter for general adult medical examination without abnormal findings (principal); M72.2 Plantar fascial fibromatosis; G57.61 Lesion of plantar nerve, right lower limb; M79.671 Pain in right foot; M79.672 Pain in left foot; M25.571 Pain in right ankle and joints of right foot; M25.572 Pain in left ankle and joints of left foot; Z82.49 Family history of ischemic heart disease and other diseases of the circulatory system; F41.9 Anxiety disorder, unspecified; E66.3 Overweight; E78.00 Pure hypercholesterolemia, unspecified; E78.5 Hyperlipidemia, unspecified

== ENCOUNTER → 2024-08-20 09:17 | Outpatient (BNVA) | payer OTHER, SELFPAY | PROVIDERS: PCP Internal Medicine; Visit Provider Physician Assistant Medical | DX: Z00.00 Encounter for general adult medical examination without abnormal findings (principal); M72.2 Plantar fascial fibromatosis; G57.61 Lesion of plantar nerve, right lower limb; M79.671 Pain in right foot; M79.672 Pain in left foot; M25.571 Pain in right ankle and joints of right foot; M25.572 Pain in left ankle and joints of left foot; F41.9 Anxiety disorder, unspecified; E66.3 Overweight; E78.00 Pure hypercholesterolemia, unspecified; Z79.899 Other long term (current) drug therapy; Z82.49 Family history of ischemic heart disease and other diseases of the circulatory system; Z71.89 Other specified counseling; Z13.31 Encounter for screening for depression; Z13.30 Encounter for screening examination for mental health and behavioral disorders, unspecified | CPT/HCPCS: 96127 ==

== ENCOUNTER → 2024-10-16 08:53 | Outpatient (REF) | payer OTHER, SELFPAY ==
--- NOTE | 2024-10-16 08:56 | CA_ITS ---
Acquisition Time: 2024-10-16 09:42:49 Total Exercise Time: 00:06:59 Test Indications: Fatigue FAMILY HX CAD Medications: CLONAZAPAM OMEPRAZOLE Protocol: KELLY Max HR: 142 BPM 89% of Pred: 158 BPM Max BP: 132/82 mmHG Max Work Load: 8.4 METS Exercise stress test with exercise 6 mins 59 secs of Kelly Protocol, achieving 89% MPHR, without any reports of SOB or chest pain, with isolated PACs and PVCs, with normotensive response to exercise. Without any EKG changes meeting criteria for ischemia. In recovery, pt continued to feel well. Test reviewed with Dr. Toledo. Referred By: Elaine Chinchilla Electronically Signed By: Agustín Mayfield
--- NOTE | 2024-10-16 08:56 | CA_ITS ---
Transthoracic Echocardiogram Patient (Last, First, Middle): Karen An M Gender: Female Date of : 1960 Age: 63 Procedure Date: 10/16/2024 Procedure Type: Transthoracic Echocardiogram Location: OP Height: 167. cm Weight: 74.84 kg BSA: 1.84 m2 Heart Rate: 58 bpm BP: 132 / 80 mmHg Game Moderator: KEKE Referring MD: Elaine Chinchilla PA-C Symptoms: R53.83 - Other fatigue Study Quality: Adequate/Breast implants ECG Rhythm: Sinus Conclusions: - The left ventricular systolic function is normal. The calculated ejection fraction is 69% by biplane method. - No obvious valvular pathology seen on this study. Findings Left Ventricle Normal left ventricular cavity size. There is mildly increased left ventricular wall thickness. The left ventricular systolic function is normal. The calculated ejection fraction is 69% by biplane method. There is no evidence of regional wall motion abnormalities. Diastolic function is normal for age. Right Ventricle Normal right ventricular cavity size and systolic function. Atria Both atria are normal in size. Aortic Valve There is a normal trileaflet aortic valve. There is no aortic valve stenosis. There is no aortic valve regurgitation. Mitral Valve The mitral valve appears normal. There is trace mitral valve regurgitation. There is no mitral valve stenosis. Pulmonic Valve The pulmonic valve is likely normal. Tricuspid Valve Normal tricuspid valve structure. There is trace tricuspid valve regurgitation. There is no evidence of pulmonary hypertension. Great Vessels The asc aorta and aortic arch are normal in size. Venous The inferior vena cava is mildly dilated and collapses greater than 50% with inspiration. Pericardium/Pleural There is no evidence of pericardial effusion. Prior Study Comparison No significant change compared to prior study dated: 09/30/2021. Recommendations, Care & Conclusions No obvious valvular pathology seen on this study. Measurements 2D Linear Measurements IVSd: 1.08 0.6-0.9/0.6-1.0 cm LVIDd: 3.77 3.9-5.3/4.2-5.9 cm LVIDd Index: 2.05 2.4-3.2/2.2-3.1 cm/m2 LVIDs: 2.66 2.0-3.6 cm LVPWd: 1.04 0.7-1.1 cm LA Diam: 4.00 2.7-3.8/3.0-4.0 cm LAIDs Index: 2.17 1.5-2.3 cm/m2 LV Mass: 156.78 67-162/88-224 g LV Mass Index: 85.21 43-95/49-115 g/m2 LVOT Diam: 2.00 3.0+(-)1.3 cm 2D Systolic Function EF 4C: 73.20 >55% EF 2C: 67.10 >55% EF BiP: 68.50 >55% Mitral Valve MV Pk E: 0.83 MV PK A: 0.60 MV Decel Time: 160.00 E/A: 1.40 E'Lateral: 8.59 E'Medial: 6.20 E/E' Med: 13.30 E/E' Lat: 9.60 PHT: 47.00 MVA PHT: 4.68 Decel [place]: 5.16 Aortic Valve AoV Pk Alexis: 1.31 AoV Mn Alexis: 0.90 AoV VTI: 0.28 AoV Pk Grad: 7.00 Aov Mn Grad: 4.00 RAFI Cont.VTI: 2.52 LVOT LVOT Pk Alexis: 1.04 LVOT Mn Alexis: 0.70 LVOT VTI: 0.23 LVOT Pk Grad: 4.00 LVOT Mn Grad: 2.00 LVOT Diam: 2.00 LVOT Area: 3.14 Diastolic Function MV Pk E: 0.83 MV Pk A: 0.60 E/A: 1.40 E'Medial: 6.20 E/E' Med: 13.30 E' Laterial: 8.59 E/E' Lat: 9.60 Right Ventricle TAPSE (mm): 21.90 TVS' Alexis: 10.70 Tricuspid Valve TR Pk Alexis: 1.57 TR Pk Grad: 10.00 RA Press: 8.00 RVSP: 18.00 Great Vessels Aorta Sinus of Valsalva: 3.10 2.0-3.5 cm Ao Asc: 3.20 2.1-3.4 cm Ao Arch: 3.30 Pulmonary Valve PV Pk Alexis: 0.88 Peak PV Grad: 3.00 Updated in Other Vendor System with Status of Final Erwin Toledo MD electronically signed on 10/17/2024 11:30:47 AM with status of Final
--- OUTSIDE RECORDS SUMMARY | 2024-10-16 09:11 | XMS_ITS | Encounter Summary ---
Author Organization [facility] Address [address] [place] [address] Care Team Providers Care Playground Official Name Role Phone Abdon Heath DO Primary Care Provider [phone] Encounter Details Date Type Department Care Team (Latest Contact Info) Description 10/11/2024 Lab Requisition [facility] - Main Lab [address] [place] [phone] Yasir Garcia MD [address] [phone] Encounter for gynecological examination (general) (routine) without abnormal findings Social History Tobacco Use Types Packs/Day Years Used Date Smoking Tobacco: Never Assessed Comments No Sex and Gender Information Value Date Recorded Sex Assigned at Female 10/11/2024 10:47 AM EDT Legal Sex Female 6:07 PM EST Gender Identity Female 10/11/2024 10:47 AM EDT Sexual Orientation Straight 10/11/2024 10 :47 AM EDT documented as of this encounter Plan of Treatment Upcoming Encounters Date Type Department Care Team (Late st Contact Info) Description 02/18/2025 9:00 AM EST [facility]ointment [facility] [address] [place] [address] documented as of this encounter Procedures Procedure Name Priority Date/Time Associated Diagnosis Comments PAP SMEAR Routine 10/10/2024 12:00 AM EDT Encounter for gynecological examination (general) (routine) without abnormal findings documented in this encounter Results * Pap smear (10/10/2024 12:00 AM EDT) Interpretation Negative for intraepithelial lesion or malignancy 10/11/2024 4:41 PM EDT [facility] General Categorization Negative 10/11/2024 4:41 PM EDT [facility] Specimen Adequacy Satisfactory for evaluation 10/11/2024 4:41 PM EDT [facility] Pap Methodology Liquid Based Pap Test 10/11/2024 4:41 PM EDT [facility] Disclaimer The Pap test is a screening test which carries an inherent false negative rate. These test results should be correlated with the patient's clinical findings and history. This Pap test was processed using an automated screening system. Technical cytopathology services provided by [facility], at [address] [place] [address] (CLIA # [id number]/Ronny Jeronimo MD, Tax Attorney.) 10/11/2024 4:41 PM EDT [facility] Console Pap Interpretation Reported 10/11/2024 4:41 PM [facility] Brushing/Spatula Vaginal structure / Unknown 10/10/2024 10/11/2024 7:15 AM EDT us Yasir Garcia MD LAB CYTOLOGY ORDERABLES Final Result [facility] [address] [place] [address], documented in this encounter Visit Diagnoses Diagnosis Encounter for gynecological examination (general) (routine) without abnormal findings documented in this encounter Care Teams Playground Official Relationship Specialty Start Date End Date Abdon Heath DO [address] [place] [phone] PCP - General Internal Medicine 02/16/24 documented as of this encounter
== END ==
LOC: HO.CARD 08:53
PROVIDERS: PCP Internal Medicine; Visit Provider Physician Assistant Medical
DX: Z13.6 Encounter for screening for cardiovascular disorders (principal); R53.83 Other fatigue; Z82.49 Family history of ischemic heart disease and other diseases of the circulatory system
CPT/HCPCS: 93017; 93306

== ENCOUNTER → 2024-10-16 08:56 | Outpatient (BNV) | payer OTHER, SELFPAY | PROVIDERS: PCP Internal Medicine | DX: I51.89 Other ill-defined heart diseases (principal); R53.83 Other fatigue; Z82.49 Family history of ischemic heart disease and other diseases of the circulatory system | CPT/HCPCS: 93016; 93018; 93320; 93325; 93350 ==